=== PATIENT | female | born 1980 | race Caucasian/White ===

== ENCOUNTER → 2017-08-09 | Outpatient (CLI) | payer OTHER ==
--- NOTE | 2017-08-09 15:36 | XR ---
Bilateral knees HISTORY: Bilateral knee pain 2 views of each knee submitted. No comparisons There is sclerosis and some depression of the lateral tibial plateau on the right which may be due to old tibial plateau fracture. Alignment and bone mineralization are otherwise maintained. Similar def ormity questioned along the proximal tibia on the left laterally, some remodeling present in the late ral compartment, correlate for history of trauma. No evident joint effusion. IMPRESSION: Abnormalities noted in the lateral compartments of the knees bilaterally as described.
== END | disposition home or self-care (01) ==
LOC: RADXRMAIN 15:10
PROVIDERS: ATTEND Family Medicine
DX: M25.861 Other specified joint disorders, right knee (principal); M25.862 Other specified joint disorders, left knee; M25.561 Pain in right knee; M25.562 Pain in left knee

== ENCOUNTER 2019-09-18 19:13 | Inpatient (IN) | payer OTHER ==
[2019-09-18] MEDS ORDERED: SODIUM CHLORIDE 0.9% 1,000 ML IV STA (19:20)
[2019-09-18] MEDS ORDERED: SODIUM CHLORIDE 0.9% 1,000 ML IV ONE ×2 (19:22→20:27)
[2019-09-18] MEDS ORDERED: SODIUM CHLORIDE 0.9% 500 ML 500 ML IV ONE (19:22)
--- NOTE | 2019-09-18 19:28 | ED ---
General Adult HPI - General Stated complaint: mental health Time Seen by Provider: 09/18/19 19:15 Source: patient, RN notes reviewed, old records reviewed - History of Present Illness Initial comments: This is a 38-year-old female who presents to the emergency department with the complaint that she is suicidal. Patient was found in a [place] parking lot and EMS was called. Patient states she took 5 [place] and 3-4 Xanax as well as about 20 Effexor. Patient states she did this in attempt to kill herself. Patient is states her life is a mess and that is why she wanted to kill herself and that her daughter would be better off without her. Patient states she did not drink any alcohol today. Patient denies any complaints currently except for a chronic neck pain but no new symptoms of neck pain. Patient denies any numbness weakness per patient denies any headache. Patient denies abdominal pain chest pain difficulty breathing shortness of breath. Patient denies any nausea or vomiting currently. - Related Data Allergies Allergy/AdvReac Type Severity Reaction Status Date / Time No Known Allergies Allergy Verified 09/18/19 20:26 Review of Systems ROS Statement: Those systems with pertinent positive or pertinent negative responses have been documented in the HPI. ROS Other: All systems not noted in ROS Statement are negative. Past Medical History History of Any Multi-Drug Resistant Organisms: ESBL Date of last positivie culture/infection: 04/27/18 MDRO Source:: ESBL URINE General Exam - General Exam Comments Initial Comments: GENERAL: Patient is well-developed and well-nourished. Patient is nontoxic and well- hydrated and is in no acute distress. ENT: Neck is soft and supple. No significant lymphadenopathy is noted. Oropharynx i s clear. Moist mucous membranes. Neck has full range of motion without eliciting any pain. EYES: The sclera were anicteric and conjunctiva were pink and moist. Extraocular movements were intact and pupils were equal round and reactive to light. Eyelids were unremarkable. PULMONARY: Unlabored respirations. Good breath sounds bilaterally. No audible rales rhonchi or wheezing was noted. CARDIOVASCULAR: There is a regular rate and rhythm without any murmurs gallops or rubs. ABDOMEN: Soft and nontender with normal bowel sounds. SKIN: Skin is clear with no lesions or rashes and otherwise unremarkable. NEUROLOGIC: Patient is alert and oriented x3. Cranial nerves II through XII are grossly intact. Motor and sensory are also intact. Normal speech, volume and content. Symmetrical smile. MUSCULOSKELETAL: Normal extremities with adequate strength and full range of motion. LYMPHATICS: No significant lymphadenopathy is noted PSYCHIATRIC: Patient states she is suicidal. Course Vital Signs 09/18/19 19:19 Temperature 98.3 F Pulse Rate 108 H Respiratory 200 H Rate Blood Pressure 157/109 O2 Sat by Pulse 97 Oximetry Medical Decision Making - Medical Decision Making EKG shows normal sinus rhythm at 90 bpm MI interval is 162 QRS is 90 QT interval 394 QTC is 503. Patient's EKG shows Q waves in leads II, III, and F aVF there is no old EKG to compare to. Patient also has inverted T waves in 1 and aVL. Patient also has Q waves in the precordial leads V1 through V3 Poison control recommended watching the patient ate 12 hours. The patient will be admitted 23 observation and cycle be consult. I spoke with Dr. Lugo he was in agreement. - Lab Data Result diagrams: 09/18/19 19:25 09/18/19 19:25 Lab Results 09/18/19 09/18/19 12 Range/Units 19:25 19:25 19:25 WBC 7.2 (3.8-10.6) k/uL RBC 4.45 (3.80-5.40) m/uL Hgb 14.6 (11.4-16.0) gm/dL Hct 42.3 (34.0-46.0) % MCV 94.9 (80.0-100.0) fL MCH 32.7 (25.0-35.0) pg MCHC 34.5 (31.0-37.0) g/dL RDW 13.5 (11.5-15.5) % Plt Count 285 (150-450) k/uL Neutrophils % 61 % Lymphocytes % 33 % Monocytes % 4 % Eosinophils % 0 % Basophils % 0 % Neutrophils # 4.4 (1.3-7.7) k/uL Lymphocytes # 2.4 (1.0-4.8) k/uL Monocytes # 0.3 (0-1.0) k/uL Eosinophils # 0.0 (0-0.7) k/uL Basophils # 0.0 (0-0.2) k/uL Sodium 134 L (137-145) mmol/L Potassium 3.9 (3.5-5.1) mmol/L Chloride 104 (98-107) mmol/L Carbon Dioxide 18 L (22-30) mmol/L Anion Gap 12 mmol/L BUN 9 (7-17) mg/dL Creatinine 0.83 (0.52-1.04) mg/dL Est GFR (CKD-EPI)AfAm >90 (>60 ml/min/1.73 sqM) Est GFR (CKD-EPI)NonAf 90 (>60 ml/min/1.73 sqM) Glucose 505 H* (74-99) mg/dL POC Glucose (mg/dL) 499 H (75-99) mg/dL POC Glu Customer Account Specialist ID [id number], Henny Calcium 9.8 (8.4-10.2) mg/dL Total Bilirubin 0.6 (0.2-1.3) mg/dL AST 21 (14-36) U/L ALT 19 (9-52) U/L Alkaline Phosphatase 95 (38-126) U/L Troponin I (0.000-0.034) ng/mL Total Protein 6.8 (6.3-8.2) g/dL Albumin 4.0 (3.5-5.0) g/dL Urine HCG, Qual (Not Detectd) Salicylates <1.0 mg/dL Urine Opiates Screen (NotDetected) Ur Oxycodone Screen (NotDetected) Urine Methadone Screen (NotDetected) Ur Propoxyphene Screen (NotDetected) Acetaminophen <10.0 ug/mL Ur Barbiturates Screen (NotDetected) U Tricyclic Antidepress (NotDetected) Ur Phencyclidine Scrn (NotDetected) Ur Amphetamines Screen (NotDetected) U Methamphetamines Scrn (NotDetected) U Benzodiazepines Scrn (NotDetected) Urine Cocaine Screen (NotDetected) U Marijuana (THC) Screen (NotDetected) Serum Alcohol <10 mg/dL Acetone, Qual Negative (Negative) 09/18/19 09/18/19 09/18/19 Range/Units 19:25 19:41 19:41 WBC (3.8-10.6) k/uL RBC (3.80-5.40) m/uL Hgb (11.4-16.0) gm/dL Hct (34.0-46.0) % MCV (80.0-100.0) fL MCH (25.0-35.0) pg MCHC (31.0-37.0) g/dL RDW (11.5-15.5) % Plt Count (150-450) k/uL Neutrophils % % Lymphocytes % % Monocytes % % Eosinophils % % Basophils % % Neutrophils # (1.3-7.7) k/uL Lymphocytes # (1.0-4.8) k/uL Monocytes # (0-1.0) k/uL Eosinophils # (0-0.7) k/uL Basophils # (0-0.2) k/uL Sodium (137-145) mmol/L Potassium (3.5-5.1) mmol/L Chloride (98-107) mmol/L Carbon Dioxide (22-30) mmol/L Anion Gap mmol/L BUN (7-17) mg/dL Creatinine (0.52-1.04) mg/dL Est GFR (CKD-EPI)AfAm (>60 ml/min/1.73 sqM) Est GFR (CKD-EPI)NonAf (>60 ml/min/1.73 sqM) Glucose (74-99) mg/dL POC Glucose (mg/dL) (75-99) mg/dL POC Glu Customer Account Specialist ID Calcium (8.4-10.2) mg/dL Total Bilirubin (0.2-1.3) mg/dL AST (14-36) U/L ALT (9-52) U/L Alkaline Phosphatase (38-126) U/L Troponin I 0.023 (0.000-0.034) ng/mL Total Protein (6.3-8.2) g/dL Albumin (3.5-5.0) g/dL Urine HCG, Qual Not Detected (Not Detectd) Salicylates mg/dL Urine Opiates Screen Detected H (NotDetected) Ur Oxycodone Screen Not Detected (NotDetected) Urine Methadone Screen Not Detected (NotDetected) Ur Propoxyphene Screen Not Detected (NotDetected) Acetaminophen ug/mL Ur Barbiturates Screen Not Detected (NotDetected) U Tricyclic Antidepress Not Detected (NotDetected) Ur Phencyclidine Scrn Not Detected (NotDetected) Ur Amphetamines Screen Detected H (NotDetected) U Methamphetamines Scrn Not Detected (NotDetected) U Benzodiazepines Scrn Detected H (NotDetected) Urine Cocaine Screen Not Detected (NotDetected) U Marijuana (THC) Screen Not Detected (NotDetected) Serum Alcohol mg/dL Acetone, Qual (Negative) Disposition Clinical Impression: Drug overdose, Suicidal ideations, Hyperglycemia Disposition: ADMITTED IP TO THIS HOSP Referrals: Francisco Barfield DO [Primary Care Provider] - 1-2 days Time of Disposition: 20:27
[2019-09-18 19:32] LABS: Glucose,Whole Blood 499 mg/dL (75-99)
[2019-09-18 19:56] LABS: Basophils % (A) 0 %; Eosinophils % (A) 0 %; HCT 42.3 % (34.0-46.0); HGB 14.6 gm/dL (11.4-16.0); Lymphocytes # (A) 2.4 k/uL (1.0-4.8); Lymphocytes % (A) 33 %; MCH 32.7 pg (25.0-35.0); MCHC 34.5 g/dL (31.0-37.0); MCV 94.9 fL (80.0-100.0); Mean Platelet Volume 6.3; Monocytes # (A) 0.3 k/uL (0-1.0); Monocytes % (A) 4 %; Neutrophils # (A) 4.4 k/uL (1.3-7.7); Neutrophils % (A) 61 %; Platelet Count 285 k/uL (150-450); RBC 4.45 m/uL (3.80-5.40); RDW 13.5 % (11.5-15.5); WBC 7.2 k/uL (3.8-10.6)
[2019-09-18 20:00] LABS: ALT 19 U/L (9-52); AST 21 U/L (14-36); Acetaminophen <10.0 ug/mL; African American GFR (CKD) >90 (>60 ml/min/1.73 sqM); Alcohol <10 mg/dL; Alkaline Phosphatase 95 U/L (38-126); Anion Gap 12 mmol/L; Blood Urea Nitrogen 9 mg/dL (7-17); Calcium 9.8 mg/dL (8.4-10.2); Carbon Dioxide 18 mmol/L (22-30); Chloride 104 mmol/L (98-107); Non-African American GFR(CKD) 90 (>60 ml/min/1.73 sqM); Potassium 3.9 mmol/L (3.5-5.1); Salicylate <1.0 mg/dL; Sodium 134 mmol/L (137-145); Total Bilirubin 0.6 mg/dL (0.2-1.3); Total Protein 6.8 g/dL (6.3-8.2)
[2019-09-18 20:11] LABS: Amphetamine Screen,Urine Detected (NotDetected); Benzodiazepines Screen,Urine Detected (NotDetected); Cocaine Screen,Urine Not Detected (NotDetected); Opiate Screen,Urine Detected (NotDetected); Phencyclidine Screen,Urine Not Detected (NotDetected); Urn Cannabinoid Scrn Not Detected (NotDetected)
[2019-09-18 20:12] LABS: Barbiturate Screen,Urine Not Detected (NotDetected); Methadone Screen, Urine Not Detected (NotDetected); Oxycodone Screen, Urine Not Detected (NotDetected); Tricyclic Antidepressant,Urine Not Detected (NotDetected)
[2019-09-18 20:20] LABS: Glucose 505 mg/dL (74-99)
[2019-09-18] MEDS ORDERED: INSULIN ASPART (NovoLOG) 100 UNIT/ML VIAL SQ ONE (20:25)
[2019-09-18] MEDS: INSULIN ASPART (NovoLOG) 100 UNIT/ML VIAL SQ SCH ×2 (20:43→22:05)
[2019-09-18 21:23] LABS: Glucose,Whole Blood 369 mg/dL (75-99)
[2019-09-18] MEDS: NICOTINE 21MG/24HR PATCH TRANSDERM SCH (22:06)
[2019-09-19 06:10] LABS: Glucose,Whole Blood 209 mg/dL (75-99)
[2019-09-19] MEDS: PANTOPRAZOLE 40 MG TABLET PO SCH (06:50)
[2019-09-19] MEDS: LEVOTHYROXINE 50 MCG TAB PO SCH (06:50)
[2019-09-19] MEDS: INSULIN ASPART (NovoLOG) 100 UNIT/ML VIAL SQ SCH ×4 (06:50→21:30)
[2019-09-19] MEDS: NICOTINE 21MG/24HR PATCH TRANSDERM SCH (08:18)
[2019-09-19 12:26] LABS: Glucose,Whole Blood 299 mg/dL (75-99)
[2019-09-19] MEDS: metFORMIN 500 MG TAB PO SCH ×2 (12:42→17:34)
--- NOTE | 2019-09-19 13:08 | P.HPIM ---
History of Present Illness H&P Date: 09/19/19 Chief Complaint: Suicidal ideation This is a 38-year-old female patient of Dr. Barfield with past medical history of recurrent depression, diabetes mellitus type 2 off medication, hypothyroidism, tobacco use and dependence, regular marijuana use. Patient states that she has had depression for a long period of time and follows with a psychiatrist first name is Kiah in [place]. Patient states that she has been depressed and not getting out of bed. She and her got into a fight as he stated that he wanted to have a divorce. She states that she does not want to live without him. She states she was feeling suicidal and took 5 Xanax, 20 Effexor, for [place]. Patient states that she lost her insurance in July or August and has not been taking her metformin. She did see Dr. Barfield approximately one month ago. She was seen at Dr. Morales's office in [place] yesterday and received a Depo-Provera and plan. Patient has a sitter at the bedside. Patient was brought into [facility] emergency center for evaluation. Initial blood pressure was high at 157/109, she was afebrile, pulse ox 97%. EKG was a sinus rhythm Q waves in leads 2, 3 aVF, V1 through V3. CBC was unremarkable, blood sugar was 505, CO2 18, creatinine 0.83, liver function tests are normal. Acetaminophen level less than 10, serum alcohol less than 10, acetone negative, troponin 0.0-3, hCG nondetected. Urine drug screen was positive for opiates and amphetamines, benzodiazepines. The patient was started on IV fluids, 1 dose of NovoLog insulin and scale started, consult with psychiatry and social work. Patient has a sitter at the bedside. Patient is subtotally been started on Tradjenta, metformin. Blood sugars are now running in the 200s. . Review of Systems Constitutional: Denies chills, Denies fatigue, Denies fever, Denies malaise, Denies weakness Eyes: denies blurred vision, denies pain Ears, nose, mouth and throat: Denies headache, Denies nasal congestion, Denies nasal discharge, Denies sore throat Cardiovascular: Denies chest pain, Denies decreased exercise tolerance, Denies dyspnea on exertion, Denies edema, Denies leg edema, Denies lightheadedness, Denies shortness of breath, Denies syncope Respiratory: Denies cough, Denies cough with sputum, Denies dyspnea, Denies excessive sputum, Denies hemoptysis, Denies home oxygen, Denies respiratory infections, Denies wheezing Gastrointestinal: Denies abdominal pain, Denies diarrhea, Denies loss of appetite, Denies nausea, Denies vomiting Genitourinary: Denies dysuria, Denies hematuria Musculoskeletal: Denies myalgias Integumentary: Reports wounds (Patient picks at scabs.), Denies pruritus, Denies rash Neurological: Denies change in mentation, Denies change in speech, Denies numbness, Denies seizures, Denies weakness Psychiatric: Reports change in sleep habits, Reports depression, Reports hypersomnia, Reports suicidal ideation, Denies hallucinations Endocrine: Denies fatigue, Denies weight change Past Medical History Past Medical History: Diabetes Mellitus, GERD/Reflux, Thyroid Disorder History of Any Multi-Drug Resistant Organisms: None Reported, ESBL Date of last positivie culture/infection: 04/27/18 MDRO Source:: ESBL URINE Additional Past Surgical History / Comment(s): Cervical spine surgery, scoliosis repair, kidney stone surgeries, Right knee arthroscopy (cartilage removed), Csection Past Anesthesia/Blood Transfusion Reactions: No Reported Reaction Past Psychological History: Anxiety, Bipolar, Depression Smoking Status: Current every day smoker Additional Past Alcohol Use History / Comment(s): Patient is a smoker of one and half packs per day for 20 years. She smokes marijuana at least 3 times a week for the past 2 years. She denies any alcohol abuse. She currently lives at home with her . - Past Family History Father Additional Family Medical History / Comment(s): Father in his 20s from suicide. Mother Additional Family Medical History / Comment(s): Mother is alive in her 50s with no major medical problems. Brother(s) Additional Family Medical History / Comment(s): Patient has 2 brothers with no major medical problems. Patient does not have any sisters. Patient has one daughter with no major medical problems. Medications and Allergies Home Medications Medication Instructions Recorded Confirmed Type Dextroamphetamine/Amphetamine 30 mg PO BID 09/18/19 09/18/19 History [Adderall] HYDROcodone/APAP 10-325MG [Allgood 1 tab PO BID PRN 09/18/19 09/18/19 History 10-325] Levothyroxine Sodium 150 mcg PO DAILY 09/18/19 09/18/19 History Omeprazole 20 mg PO BID 09/18/19 09/18/19 History Venlafaxine HCl [Effexor XR] 150 mg PO BID 09/18/19 09/18/19 History medroxyPROGESTERone [Depo-Provera] 150 mg IM Q84D 09/18/19 09/18/19 History Allergies Allergy/AdvReac Type Severity Reaction Status Date / Time No Known Allergies Allergy Verified 09/18/19 21:24 Physical Exam Vitals: Vital Signs Temp Pulse Pulse Resp BP BP Pulse Ox 09/19/19 12:00 98.2 F 82 16 123/79 95 09/19/19 08:19 98.3 F 86 16 111/74 94 L 09/19/19 04:54 97.4 F L 89 16 132/80 92 L 09/18/19 23:27 97.6 F 92 20 118/71 93 L 09/18/19 21:20 98.1 F 82 18 140/98 98 09/18/19 20:30 79 18 134/87 97 09/18/19 20:15 87 18 135/84 98 09/18/19 20:00 90 18 137/91 95 09/18/19 19:45 93 18 162/103 95 09/18/19 19:19 98.3 F 108 H 20 157/109 97 Intake and Output 09/18/19 09/19/19 09/19/19 22:59 06:59 14:59 Intake Total 900 240 Balance 900 240 Intake: Intake, IV Titration 900 Amount Sodium Chloride 0.9% 1, 900 000 ml @ 100 mls/hr IV . Q10H ONE Rx#:[id number] Oral 240 Other: # Voids 1 0 Weight 111.13 kg 107.5 kg - Constitutional General appearance: cooperative, disheveled, no acute distress, obese - EENT Eyes: EOMI, PERRLA, normal appearance ENT: hearing grossly normal - Neck Neck: no lymphadenopathy, normal ROM, no rigidity - Respiratory Respiratory: bilateral: CTA, negative: diminished, rales, rhonchi, wheezing - Cardiovascular Rhythm: regular Heart sounds: normal: S1, S2 Abnormal Heart Sounds: no systolic murmur, no diastolic murmur - Gastrointestinal General gastrointestinal: no distended, normal bowel sounds, no organomegaly, soft, no tenderness - Integumentary Integumentary: normal - Neurologic Neurologic: CNII-XII intact - Musculoskeletal Musculoskeletal: no generalized weakness, strength equal bilaterally - Psychiatric Psychiatric: A&O x's 3, appropriate affect, intact judgment & insight Results CBC & Chem 7: 09/18/19 19:25 09/18/19 19:25 Labs: Abnormal Lab Results - Last 24 Hours (Table) 09/18/19 09/18/19 09/18/19 Range/Units 19:25 19:25 19:41 Sodium 134 L (137-145) mmol/L Carbon Dioxide 18 L (22-30) mmol/L Glucose 505 H* (74-99) mg/dL POC Glucose (mg/dL) 499 H (75-99) mg/dL Urine Opiates Screen Detected H (NotDetected) Ur Amphetamines Screen Detected H (NotDetected) U Benzodiazepines Scrn Detected H (NotDetected) 09/18/19 09/19/19 09/19/19 Range/Units 21:20 06:08 12:02 Sodium (137-145) mmol/L Carbon Dioxide (22-30) mmol/L Glucose (74-99) mg/dL POC Glucose (mg/dL) 369 H 209 H 299 H (75-99) mg/dL Urine Opiates Screen (NotDetected) Ur Amphetamines Screen (NotDetected) U Benzodiazepines Scrn (NotDetected) Thrombosis Risk Factor Assmnt - DVT/VTE Prophylaxis DVT/VTE Prophylaxis: Pharmacologic Prophylaxis ordered - Choose All That Apply Any of the Below Risk Factors Present?: Yes Each Factor Represents 1 point: Oral contraceptives or hormone replacement therapy Other Risk Factors: No Other congenital or acquired thrombophilia - If yes, enter type in comment: No Thrombosis Risk Factor Assessment Total Risk Factor Score: 1 Thrombosis Risk Factor Assessment Level: Low Risk Assessment and Plan Plan: 1. Suicide attempt with recurrent depression. Patient has sitter at the [facility], psychiatrist consult, continue IV fluids. 2. Diabetes mellitus type 2 uncontrolled secondary to noncompliance with medication. Patient will be resumed on metformin 500 mg twice daily and Tr adjenta added. Continue NovoLog scale before meals and at bedtime. parent educator. Obtain hemoglobin A1c. 3. Hypothyroidism. Continue levothyroxine 150 g daily, check TSH and free T4. 4. Tobacco use and dependence. Nicotine patch. 5. Marijuana use. 6. Gastroesophageal reflux disease and GI prophylaxis. Protonix. 7. DVT prophylaxis. Heparin subcu. Patient will be admitted to the hospital for a minimum of 2 night stay. Discharge plan: Patient is medically clear for transfer to the mental health unit. Impression and plan of care have been directed as dictated by the signing physician. Pamella Aparicio nurse practitioner acting as scribe for signing physician.
[2019-09-19 14:28] LABS: T4, Free (Free Thyroxine) 0.88 ng/dL (0.78-2.19)
--- NOTE | 2019-09-19 15:37 | P.CN ---
Psychiatric Consult - . Consult date: 09/19/19 Consult:: IDENTIFYING DATA: The patient is a 38-year-old female admitted to medicine service following an attempted suicide attempt by overdose of prescription medications including [place], Xanax and Effexor. HISTORY OF PRESENT ILLNESS: I reviewed the medical record and interviewed the patient. She stated that she's been struggling with depression for "most of my life." She alleged that her depression is so severe that she is unable to care for herself, her home her family. She alleged that she is fatigued "all day" and has no energy to herself, her home or family. Her behavior has resulted in marital discord. In April her told her that he could not "take this anymore" and told her that he "wants a divorce." She begged him to give her "6 more months". The day prior to admission he told her that things changed and he wants out of the marriage. She stated that she "could not live" without him and took the medication to end her life. She has been treated for depression since she was 17 years old. She is currently engaged in individual therapy and meets with the psychiatrist at the clinic (she did not remember the name of clinic). She described classic symptoms of depression including persistent feelings of hopelessness and worthlessness, lack of energy, persistent guilt, anhedonia, recurrent thoughts of and suicide and hypersomnia. She also complained of persistent and disabling anxiety that fluctuates in intensity. She had multiple excoriations on the back of her left hand and excoriations on her abdomen from chronic skin picking. She denied other obsessions or compulsions. She denied experiencing such psychotic symptoms as hallucinations, paranoia or delusional thinking. She denied use of alcohol but smokes marijuana. PAST PSYCHIATRIC HISTORY: She denied prior psychiatric hospitalizations.. PAST MEDICAL HISTORY: Diabetes mellitus, GERD, thyroid disorder. ALLERGIES: NO KNOWN DRUG ALLERGIES. SUBSTANCE USE HISTORY: She is not been substance abuse treatment program. She denied a family or friends have expressed concern about her marijuana use.. FAMILY PSYCHIATRIC/SUBSTANCE USE HISTORY: Unknown. SOCIAL HISTORY: Her father apparently by suicide when she was 1 years old. She has 2 brothers. She graduated from high school. She is currently unemployed. She lives with her and heir daughter. MENTAL STATUS EXAM: She presented as a modestly obese 38-year-old female who looked older than her stated age. She made eye contact and appeared to attend to the interview. Other than excoriations on the back of her left hand she had no prominent physical abnormalities. She had a distressed facial expression. She is alert and oriented to person, place and time. She showed psychomotor retardation but no abnormal movements. Her speech was spontaneous with decreased rate, rhythm and volume. Affect was depressed, anxious and not reactive. She described continued suicidal ideation and wishes. She denied homicidal ideation. She expressed feelings of hopelessness, helplessness and worthlessness. She ruminated about circumstances that led to this hospitalization particularly the ongoing conflict with her . She did not express ideas reference, paranoid ideation, magical thinking or delusions. Her thinking was concrete. Associations were coherent, logical and goal directed. She denied hallucinations and did not appear to be responding to internal stimuli.. 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 [facility] a suicide attempt by overdose of prescription medications after told her that he wants divorce. She described classic symptoms of depression and complicated by psychosis. She should best be treated on an inpatient psychiatric unit with a combination of psychopharmacology and multimodal therapy. DIAGNOSIS: Persistent depressive disorder, excoriations disorder, rule out major depressive disorder rule out cannabis use disorder, marital problems PLAN:. Psychiatric unit once medically stable, continue one-to-one while she was on the medical unit, distress consult.. 09/19/19 15:19
[2019-09-19 17:12] LABS: Glucose,Whole Blood 279 mg/dL (75-99)
[2019-09-19 21:23] LABS: Glucose,Whole Blood 277 mg/dL (75-99)
[2019-09-19] MEDS: HEPARIN SODIUM,PORCINE 5,000 UNIT/ML 1 ML VIAL SQ SCH (21:30)
[2019-09-20 05:11] VITALS: PULSE 83
[2019-09-20 06:28] LABS: Glucose,Whole Blood 198 mg/dL (75-99)
[2019-09-20] MEDS: LEVOTHYROXINE 50 MCG TAB PO SCH (07:13)
[2019-09-20] MEDS: PANTOPRAZOLE 40 MG TABLET PO SCH (07:13)
[2019-09-20] MEDS: INSULIN ASPART (NovoLOG) 100 UNIT/ML VIAL SQ SCH (07:13)
[2019-09-20] MEDS: metFORMIN 500 MG TAB PO SCH (07:13)
[2019-09-20 08:12] VITALS: BP 123/79; RESP 20; TEMP 98.1
[2019-09-20] MEDS ORDERED: LINAGLIPTIN 5 MG TABLET PO SCH (09:00)
[2019-09-20] MEDS: HEPARIN SODIUM,PORCINE 5,000 UNIT/ML 1 ML VIAL SQ SCH (09:10)
[2019-09-20] MEDS: NICOTINE 21MG/24HR PATCH TRANSDERM SCH (09:10)
[2019-09-20 12:05] LABS: Glucose,Whole Blood 228 mg/dL (75-99)
[2019-09-20] MEDS ORDERED: INSULIN ASPART (NovoLOG) 100 UNIT/ML VIAL SQ SCH (12:30)
--- NOTE | 2019-09-20 13:27 | P.DS ---
Providers Date of admission: 09/18/19 20:27 Attending physician: Antonio Lugo Consults: 09/18/19 20:28 Consult Physician Stat Consulting Provider: Antonio Ibarra Reason/Comments: Suicidal ideations and attempt Do you want consulting provider notified?: Already Contacted Primary care physician: Francisco Barfield [facility] Course: Chief Complaint: Suicidal ideation This is a 38-year-old female patient of Dr. Barfield with past medical history of recurrent depression, diabetes mellitus type 2 off medication, hypothyroidism, tobacco use and dependence, regular marijuana use. Patient states that she has had depression for a long period of time and follows with a psychiatrist first name is Kiah in [place]. Patient states that she has been depressed and not getting out of bed. She and her got into a fight as he stated that he wanted to have a divorce. She states that she does not want to live without him. She states she was feeling suicidal and took 5 Xanax, 20 Effexor, for Bern. Patient states that she lost her insurance in July or August and has not been taking her metformin. She did see Dr. Barfield approximately one month ago. She was seen at Dr. Morales's office in [place] yesterday and received a Depo-Provera and plan. Patient has a sitter at the bedside. Patient was brought into [facility] emergency center for evaluation. Initial blood pressure was high at 157/109, she was afebrile, pulse ox 97%. EKG was a sinus rhythm Q waves in leads 2, 3 aVF, V1 through V3. CBC was unremarkable, blood sugar was 505, CO2 18, creatinine 0.83, liver function tests are normal. Acetaminophen level less than 10, serum alcohol less than 10, acetone negative, troponin 0.0-3, hCG nondetected. Urine drug screen was positive for opiates and amphetamines, benzodiazepines. The patient was started on IV fluids, 1 dose of NovoLog insulin and scale started, consult with psychiatry and social work. Patient has a sitter at the bedside. Patient is subtotally been started on Tradjenta, metformin. Blood sugars are now running in the 200s. . 09/20 patient is doing very well advance physical therapy [medication was seen by psych patient be transported to the psych unit today. Review of Systems Constitutional: Denies chills, Denies fatigue, Denies fever, Denies malaise, Denies weakness Eyes: denies blurred vision, denies pain Ears, nose, mouth and throat: Denies headache, Denies nasal congestion, Denies nasal discharge, Denies sore throat Cardiovascular: Denies chest pain, Denies decreased exercise tolerance, Denies dyspnea on exertion, Denies edema, Denies leg edema, Denies lightheadedness, Denies shortness of breath, Denies syncope Respiratory: Denies cough, Denies cough with sputum, Denies dyspnea, Denies excessive sputum, Denies hemoptysis, Denies home oxygen, Denies respiratory infections, Denies wheezing Gastrointestinal: Denies abdominal pain, Denies diarrhea, Denies loss of appetite, Denies nausea, Denies vomiting Genitourinary: Denies dysuria, Denies hematuria Musculoskeletal: Denies myalgias Integumentary: Reports wounds (Patient picks at scabs.), Denies pruritus, Denies rash Neurological: Denies change in mentation, Denies change in speech, Denies numbness, Denies seizures, Denies weakness Psychiatric: Reports change in sleep habits, Reports depression, Reports hypersomnia, Reports suicidal ideation, Denies hallucinations Endocrine: Denies fatigue, Denies weight change Physical examinations: General Appearance: Alert, cooperative, no distress, appears stated age. Neck HEENT: Supple, no lymphadenopathy, no thyroid enlargement, no carotid bruits. Lungs: Clear to auscultation without crackles or wheezes no rhonchi, no deformity. Chest Wall: Chest wall normal expansion with deep inspiration no tenderness and no deformity was found on exam, no costochondral pain or discomfort. Heart: Regular rate and rhythm, S1, S2 normal, no murmur, rub or gallop. Back: Symmetric, no curvature, ROM normal, no CVA tenderness. Abdomen: Soft, non-tender, bowel sounds active all four quadrants, no masses, no organomegaly. Extremities: Extremities normal, atraumatic, no cyanosis or edema. Pulses: 2+ and symmetric. Skin: Skin color, texture, tugor normal, no rashes or lesions. Neurologic: Alert oriented x3 cranial nerves II through XII intact, no motor deficit, no abnormal balance or gait. Assessment and Plan Plan: 1. Suicide attempt with recurrent depression. Patient has sitter at the bedside, psychiatrist consult, continue IV fluids. 2. Diabetes mellitus type 2 uncontrolled secondary to noncompliance with medication. Patient will be resumed on metformin 500 mg twice daily and Tradjenta added. Continue NovoLog scale before meals and at bedtime. 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 Obtain hemoglobin A1c. 3. Hypothyroidism. Continue levothyroxine 150 g daily, check TSH and free T4. 4. Tobacco use and dependence. Nicotine patch. 5. Marijuana use. 6. Gastroesophageal reflux disease and GI prophylaxis. Protonix. 7. DVT prophylaxis. Heparin subcu. Patient was approved to be transferred to psych unit by today 09/20/2019. Readjust diabetic management and increase metformin to 1000 g twice a day NovoLog 5 units before meals eels plus sliding scales. Plan - Discharge Summary New Discharge Prescriptions: New Nicotine 21Mg/24Hr Patch [Habitrol] 1 patch TRANSDERM DAILY patch INSULIN ASPART (NovoLOG) [NovoLOG (formulary)] 0 unit SQ ACHS vial Linagliptin [Tradjenta] 5 mg PO DAILY tablet metFORMIN HCL [Glucophage] 1,000 mg PO BID-W/MEALS tab INSULIN ASPART (NovoLOG) [NovoLOG (formulary)] 5 unit SQ AC-TID vial Continue Venlafaxine HCl [Effexor XR] 150 mg PO BID medroxyPROGESTERone [Depo-Provera] 150 mg IM Q84D Levothyroxine Sodium 150 mcg PO DAILY HYDROcodone/APAP 10-325MG [Bern 10-325] 1 tab PO BID PRN PRN Reason: Pain Dextroamphetamine/Amphetamine [Adderall] 30 mg PO BID Omeprazole 20 mg PO BID Discharge Medication List Dextroamphetamine/Amphetamine [Adderall] 30 mg PO BID 09/18/19 [History] HYDROcodone/APAP 10-325MG [Bern 10-325] 1 tab PO BID PRN 09/18/19 [History] Levothyroxine Sodium 150 mcg PO DAILY 09/18/19 [History] Omeprazole 20 mg PO BID 09/18/19 [History] Venlafaxine HCl [Effexor XR] 150 mg PO BID 09/18/19 [History] medroxyPROGESTERone [Depo-Provera] 150 mg IM Q84D 09/18/19 [History] INSULIN ASPART (NovoLOG) [NovoLOG (formulary)] 0 unit SQ ACHS vial 09/20/19 [Rx] INSULIN ASPART (NovoLOG) [NovoLOG (formulary)] 5 unit SQ AC-TID vial 09/20/19 [Rx] Linagliptin [Tradjenta] 5 mg PO DAILY tablet 09/20/19 [Rx] Nicotine 21Mg/24Hr Patch [Habitrol] 1 patch TRANSDERM DAILY patch 09/20/19 [Rx] metFORMIN HCL [Glucophage] 1,000 mg PO BID-W/MEALS tab 09/20/19 [Rx] Follow up Appointment(s)/Referral(s): Francisco Barfield DO [Primary Care Provider] - 1-2 days Discharge Disposition: TRANSFER TO PSYCH HOSP/UNIT
[2019-09-20] MEDS ORDERED: metFORMIN 500 MG TAB PO SCH (17:30)
== END 2019-09-20 12:00 | DRG 918 ==
LOC: EC 19:13 → 3SCARD 20:27
PROVIDERS: ADMIT Internal Medicine Geriatric Medicine; ATTEND Internal Medicine Geriatric Medicine
DX: T43.212A Poisoning by selective serotonin and norepinephrine reuptake inhibitors, intentional self-harm, initial encounter (principal); F33.9 Major depressive disorder, recurrent, unspecified; T40.2X2A Poisoning by other opioids, intentional self-harm, initial encounter; E03.9 Hypothyroidism, unspecified; E11.65 Type 2 diabetes mellitus with hyperglycemia; T38.3X6A Underdosing of insulin and oral hypoglycemic [antidiabetic] drugs, initial encounter; Z91.120 Patient's intentional underdosing of medication regimen due to financial hardship; F17.200 Nicotine dependence, unspecified, uncomplicated; F41.9 Anxiety disorder, unspecified; G89.29 Other chronic pain; M54.2 Cervicalgia; M41.9 Scoliosis, unspecified; Z79.890 Hormone replacement therapy; Z87.442 Personal history of urinary calculi; G47.10 Hypersomnia, unspecified; Z56.0 Unemployment, unspecified; Z63.5 Disruption of family by separation and divorce; Z81.8 Family history of other mental and behavioral disorders; E66.9 Obesity, unspecified; Z68.36 Body mass index [BMI] 36.0-36.9, adult
CPT/HCPCS: 36415; 80053; 80306; 80320; 80329; 81025; 82009; 82075; 83036; 83520; 84439; 84443; 84484; 85025; 93005; 96360; 99285

== ENCOUNTER 2019-09-20 10:27 | Inpatient (IN) | payer OTHER ==
[2019-09-20 12:39] LABS: Glucose,Whole Blood 222 mg/dL (75-99)
[2019-09-20] MEDS ORDERED: MAG HYDROX/AL HYDROX/SIMETH 30 ML CUP PO PRN (12:40)
[2019-09-20] MEDS ORDERED: MAGNESIUM HYDROXIDE 2,400 MG/10 ML CUP PO PRN (12:40)
[2019-09-20] MEDS: INSULIN ASPART (NovoLOG) 100 UNIT/ML VIAL SQ SCH ×5 (13:17→21:16)
[2019-09-20 15:13] VITALS: BMI 36.1
--- NOTE | 2019-09-20 15:56 | P.HP ---
Psychiatric H&P - . H&P Date: 09/20/19 History & Physical: DENTIFYING DATA: The patient is a 38-year-old female transferred from medicine service following an attempted suicide attempt by overdose of prescription medications including Narco, Xanax and Effexor. HISTORY OF PRESENT ILLNESS: I reviewed the medical record and interviewed the patient. She complained that she's been struggling with depression for "most of my life." Her depression worsened about 3 to 3 1/2 years ago after she stopped working. 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 She has since been at home. She alleged that her depression had become so severe that she is unable to care for herself, her home her family. She is fatigued "all day" and has no energy to care for herself, her home or family. She "lays in bed" all day watching television. Her behavior has resulted in marital discord. In April her told her that he could not "take this anymore" and told her that he "wants a divorce." She begged him to give her "6 more months". The day prior to admission he told her that things have not changed and he wants out of the marriage. She stated that she "could not live" without him and took the medication impulsively. She denied the action was planned or premeditated. She meets with a therapist at [facility] in [place], [place]. Her primary care provider has prescribed psychotropic medication that include E ffexor XR, Xanax and Adderall. She stated that the physician prescribed Xanax for treatment of "severe" anxiety and prescribed Adderall because of persistent fatigue. She described classic symptoms of depression including persistent feelings of hopelessness and worthlessness, lack of energy, persistent guilt, anhedonia, recurrent thoughts of and suicide and hypersomnia. She also complained of persistent and disabling anxiety that fluctuates in intensity. She had multiple excoriations on the back of her left hand, forelegs and her abdomen from chronic skin picking. She denied other obsessions or compulsions. She denied experiencing such psychotic symptoms as hallucinations, paranoia or delusional thinking. She denied use of alcohol but smokes marijuana. PAST PSYCHIATRIC HISTORY: She denied prior psychiatric hospitalizations. She first received treatment for depression when she was 17 years old. She alleged that she does not remember why she entered treatment. She denied past suicide attempts or gestures. She has been prescribed several antidepressant such as Prozac, Paxil, Celexa, Wellbutrin but she thinks she's been prescribed several other medications. PAST MEDICAL HISTORY: Diabetes mellitus, GERD, thyroid disorder. ALLERGIES: NO KNOWN DRUG ALLERGIES. SUBSTANCE USE HISTORY: She is not been substance abuse treatment program. She denied a family or friends have expressed concern about her marijuana use.. FAMILY PSYCHIATRIC/SUBSTANCE USE HISTORY: Her father by suicide when she was 1 years old from carbon monoxide suffocation. Her mother has a history of depression SOCIAL HISTORY: She is born and raised in [place]. She has 2 brothers. She graduated from high school. She is currently unemployed. She lives with her and heir daughter. MENTAL STATUS EXAM: She presented as a modestly obese 38-year-old female who looked older than her stated age. She made eye contact and appeared to attend to the interview. Other than excoriations on the back of her left hand she had no prominent physical abnormalities. She had a distressed and angry facial expression. She cried when she talked about her marriage and again made statements that she could not continue if her her. She is alert and oriented to person, place and time. She showed psychomotor retardation but no abnormal movements. Her speech was spontaneous with decreased rate, rhythm and volume. Affect was depressed, anxious and not reactive. She described continued suicidal ideation and wishes. She denied homicidal ideation. She expressed feelings of hopelessness, helplessness and worthlessness. She ruminated about circumstances that led to this hospitalization particularly the ongoing conflict with her . She did not express ideas reference, paranoid ideation, magical thinking or delusions. Her thinking was concrete. Associations were coherent, logical and goal directed. She denied hallucinations and did not appear to be responding to internal stimuli.. 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 She presented to [facility] following a suicide attempt by overdose of prescription medications after told her that he wants divorce. She described classic symptoms of depression and complicated by psychosis. She should best be treated on an inpatient psychiatric unit with a combination of psychopharmacology and multimodal therapy. DIAGNOSIS: Major depressive disorder severe without psychotic features, excoriations disorder, marital problems PLAN: Admit to the psychiatric unit, safety precautions, consult medicine for initial physical exam and medical history, family welfare social work professor completed initial physical history and coordinate discharge and aftercare, obtain a more comprehensive list of past treatments, discontinue Effexor XR (she appeared to have had adequate dose andduration of treatment), most likely she would benefit from a combined treatment with antidepressant and a second medication either lithium or second generation antipsychotic, consider referral for ECT, encourage participation in therapeutic groups and activities. Evaluate clinical status response to treatment daily basis. Allergies Allergy/AdvReac Type Severity Reaction Status Date / Time No Known Allergies Allergy Verified 09/20/19 12:37 Vital Signs Temp 97.8 F 09/20/19 13:25 Pulse 87 09/20/19 13:25 Resp 18 09/20/19 13:25 BP 138/88 09/20/19 13:25 Pulse Ox 99 09/20/19 13:25 Intake & Output 09/19/19 09/20/19 09/20/19 18:59 06:59 18:59 Weight 107.6 kg Laboratory Last Values POC Glucose (mg/dL) 222 mg/dL (75-99) H 09/20/19 12:38 POC Glu Drywall Worker ID Jessica Chandler 09/20/19 12:38 09/20/19 15:26 09/20/19 15:37 09/20/19 15:52
[2019-09-20] MEDS: metFORMIN 500 MG TAB PO SCH (17:25)
[2019-09-20 17:30] LABS: Glucose,Whole Blood 247 mg/dL (75-99)
[2019-09-20] MEDS ORDERED: INSULIN ASPART (NovoLOG) 100 UNIT/ML VIAL SQ SCH ×2 (17:30)
[2019-09-20 20:16] LABS: Glucose,Whole Blood 212 mg/dL (75-99)
[2019-09-20] MEDS: INSULIN DETEMIR (LEVEMIR) 100 UNIT/ML SYR SQ SCH (21:17)
--- NOTE | 2019-09-21 00:38 | P.MDCNMH ---
History of Present Illness H&P Date: 09/20/19 Chief Complaint: Suicidal ideation 39-year-old female with history of depression diabetes mellitus and hypothyroid Patient comes in due to suicidal ideation she reports that she was thinking of overdosing on medications. She currently denies any suicidal ideation. Patient reports overwhelming depression Otherwise currently denies any physical or medical complaints denies any fevers chills headache nausea vomiting chest pain trouble breathing abdominal pain changes in her bowel or urinary habits. Patient admits to picking on her skin resulting in bruising over her body Review of Systems Pertinent positives as noted in HPI. All other systems were reviewed and are negative Past Medical History Past Medical History: Diabetes Mellitus, GERD/Reflux, Thyroid Disorder History of Any Multi-Drug Resistant Organisms: None Reported, ESBL Date of last positivie culture/infection: 04/27/18 MDRO Source:: ESBL URINE Additional Past Surgical History / Comment(s): Cervical spine surgery, scoliosis repair, kidney stone surgeries, Right knee arthroscopy (cartilage removed), Csection Past Anesthesia/Blood Transfusion Reactions: No Reported Reaction Smoking Status: Current every day smoker - Past Family History Father Additional Family Medical History / Comment(s): Father in his 20s from suicide. Mother Additional Family Medical History / Comment(s): Mother is alive in her 50s with no major medical problems. Brother(s) Additional Family Medical History / Comment(s): Patient has 2 brothers with no major medical problems. Patient does not have any sisters. Patient has one daughter with no major medical problems. Medications and Allergies Home Medications Medication Instructions Recorded Confirmed Type Dextroamphetamine/Amphetamine 30 mg PO BID 09/18/19 09/18/19 History [Adderall] HYDROcodone/APAP 10-325MG [[place] 1 tab PO BID PRN 09/18/19 09/18/19 History 10-325] Levothyroxine Sodium 150 mcg PO DAILY 09/18/19 09/18/19 History Omeprazole 20 mg PO BID 09/18/19 09/18/19 History Venlafaxine HCl [Effexor XR] 150 mg PO BID 09/18/19 09/18/19 History medroxyPROGESTERone [Depo-Provera] 150 mg IM Q84D 09/18/19 09/18/19 History INSULIN ASPART (NovoLOG) [NovoLOG 0 unit SQ ACHS vial 09/20/19 Rx (formulary)] INSULIN ASPART (NovoLOG) [NovoLOG 5 unit SQ AC-TID vial 09/20/19 Rx (formulary)] Linagliptin [Tradjenta] 5 mg PO DAILY tablet 09/20/19 Rx Nicotine 21Mg/24Hr Patch [Habitrol] 1 patch TRANSDERM DAILY patch 09/20/19 Rx metFORMIN HCL [Glucophage] 1,000 mg PO BID-W/MEALS tab 09/20/19 Rx Allergies Allergy/AdvReac Type Severity Reaction Status Date / Time No Known Allergies Allergy Verified 09/20/19 12:37 Physical Exam Vitals: Vital Signs Temp Pulse Resp BP Pulse Ox 09/20/19 13:25 97.8 F 87 18 138/88 99 Intake and Output 09/20/19 09/20/19 09/21/19 14:59 22:59 06:59 Other: Weight 107.6 kg 107.6 kg Constitutional: No acute distress, conversant, pleasant Eyes: Anicteric sclerae, moist conjunctiva, no lid-lag Pupils equal round reactive to light ENMT: NC/AT Oropharynx clear, no erythema, exudates Neck: Supple, FROM, no masses, or JVD No carotid bruits No thyromegaly Lungs: Clear to auscultation Clear to percussion Normal respiratory effort, no accessory muscle use Cardiovascular: Heart regular in rate and rhythm, No murmurs, gallops, or rubs No peripheral edema Abdominal: Soft Nontender, no guarding, rebound or rigidity Abdomen moving with respiration Normoactive bowel sounds No hepatomegaly, No splenomegaly No palpable mass No abdominal wall hernia noted Skin: Dorsum of her left hand with scarring and bruising due to patient picking on her skin no active bleeding or drainage, similar areas over her belly Otherwise Normal temperature, tone, texture, turgor No induration Extremities: No digital cyanosis No clubbing Pedal pulses intact and symmetrical Radial pulses intact and symmetrical No calf tenderness Psychiatric: Alert and oriented to person, place and time Flat affect Poor judgment Neuro Muscles Strength 5/5 in all 4 extremities Sensation to light touch grossly present throughout Cranial nerves II-XII grossly intact No focal sensory deficits Lymphatics: no palpable cervical or supraclavicular , or inguinal lymph nodes Cranial Nerve Examination - Cranial Nerves Cranial Nerve II- Optic: Intact Cranial Nerve III- Oculomotor: Intact Cranial Nerve IV- Trochlear: Intact Cranial Nerve V- Trigeminal: Intact Cranial Nerve - Abducens: Intact Cranial Nerve VII- Facial: Intact Cranial Nerve VIII- Auditory: Intact Cranial Nerve IX- Glossopharyngeal: Intact Cranial Nerve X- Vagus: Intact Cranial Nerve XI- Accessory: Intact Cranial Nerve XII- Hypoglossal: Intact Results Labs: Abnormal Lab Results - Last 24 Hours (Table) 09/20/19 09/20/19 09/20/19 Range/Units 12:38 17:19 20:14 POC Glucose (mg/dL) 222 H 247 H 212 H (75-99) mg/dL Assessment and Plan Assessment: 39-year-old female with history of diabetes and depression and hypothyroid Admitted to suicidal ideation and depression Currently has no medical complaints medicine was consulted for the management Plan: Depression with suicidal ideation Management per psych Chronic conditions Diabetes mellitus, insulin sliding scale Hypothyroid Resume home meds Patient is an ambulatory low risk for DVT Thank you for allowing us to participate in the care of this patient. We will follow peripherally. Do not hesitate to contact us with questions. Someone can be reached from the [facility] hospitalist group at all hours of the day at [phone].
[2019-09-21] MEDS: LEVOTHYROXINE 75 MCG TAB PO SCH (07:59)
[2019-09-21] MEDS: PANTOPRAZOLE 40 MG TABLET PO SCH (07:59)
[2019-09-21] MEDS: LINAGLIPTIN 5 MG TABLET PO SCH (07:59)
[2019-09-21] MEDS: metFORMIN 500 MG TAB PO SCH ×2 (07:59→17:41)
[2019-09-21] MEDS: NICOTINE 21MG/24HR PATCH TRANSDERM SCH (07:59)
[2019-09-21 08:03] LABS: Glucose,Whole Blood 185 mg/dL (75-99)
[2019-09-21] MEDS: INSULIN ASPART (NovoLOG) 100 UNIT/ML VIAL SQ SCH ×7 (08:04→20:36)
[2019-09-21 12:43] LABS: Glucose,Whole Blood 180 mg/dL (75-99)
--- NOTE | 2019-09-21 13:40 | P.PN ---
Progress Note - Text Progress Note Date: 09/21/19 Clinical Problems: Major depressive disorder severe without psychotic features, excoriation disorder, marital problems Interim history: I reviewed the medical record, interviewed the patient and discussed her treatment and treatment plan during team meeting. She complained of continued fatigue, hypersomnia and anhedonia. She has not spoken to her since she been admitted about the marriage for his request for divorce. She slept 6 hours last night and has not attended therapeutic groups or activities. We reviewed her treatment history. She has been prescribed several antidepressants including citalopram, escitalopram, fluoxetine, paroxetine, sertraline, duloxetine, venlafaxine, vilazodone and bupropion. She has not been treated with a tricyclic antidepressant, tetracycline Antidepressant or a monoamine oxidase inhibitor. She could not remember if she had been prescribed second-generation antipsychotic. She denied prior treatment with lithium. We discussed treatment options and I recommended treatment with a tricyclic antidepressant and lithium. Considering her history of excoriation disorder I recommended clomipramine. I provided her with information about both medications. She was ambivalent about ECT. her tsh on admission to medicine unit was 16.3. She is taking 150 g of synthroid daily. Mental status exam: She presented as a casually groomed moderate obese 39-year-old female who was pleasant on approach. She made eye contact and appeared to attend to the interview. She had no overt lesions on the back of her left hand from skin picking. She had a sad facial expression. She was alert and oriented to person place and time. She had psychomotor retardation but no abnormal movements. His gait was slow but steady. Her speech was not spontaneous and had decreased rate, rhythm and volume. Her affect was depressed and not reactive. She denied current suicidal ideation or wishes. She continues to express feelings of hopelessness, helplessness and worthlessness. She did not express ideas reference, paranoid ideation or delusions. Her thinking was abstract and her associations were coherent and logical. She denied hallucinations and did not appear to be responding to internal stimuli. Assessment: She is chronically depressed and he showed minimal response to treatment with a single antidepressant. She would benefit from combined treatment or referral for ECT. She would also be a candidate for treatment with esketamine if it were available. Plan: Continue inpatient hospitalization. Continue safety precautions. Begin clomipramine 25 mg daily and titrated according to clinical response and tolerance with the target range of 120 mg daily. Begin lithium 300 mg 3 times a day for augmentation of the antidepressant. Continue discussion on referral for ECT. Continue NovoLog, Levemir, Synthroid, Cogentin,, Glucophage and Protonix as recommended by the contract consultant hospitalists. Habitrol for smoking cessation. Encourage participation in therapeutic groups and activities. Evaluate clinical status response to treatment daily basis.
[2019-09-21] MEDS: LITHIUM CARBONATE 300 MG CAP PO SCH ×2 (15:40→20:38)
[2019-09-21] MEDS ORDERED: HYDROcodone/APAP 5-325MG 1 EACH TAB PO PRN (16:59)
[2019-09-21 17:51] LABS: Glucose,Whole Blood 218 mg/dL (75-99)
[2019-09-21] MEDS: INSULIN DETEMIR (LEVEMIR) 100 UNIT/ML SYR SQ SCH (20:38)
[2019-09-21 20:44] LABS: Glucose,Whole Blood 184 mg/dL (75-99)
[2019-09-22] MEDS: ACETAMINOPHEN TAB 325 MG TAB PO PRN (02:05)
[2019-09-22] MEDS: LEVOTHYROXINE 75 MCG TAB PO SCH (06:31)
[2019-09-22] MEDS: metFORMIN 500 MG TAB PO SCH ×2 (08:11→17:49)
[2019-09-22] MEDS: NICOTINE 21MG/24HR PATCH TRANSDERM SCH (08:11)
[2019-09-22] MEDS: LITHIUM CARBONATE 300 MG CAP PO SCH ×3 (08:11→22:10)
[2019-09-22] MEDS: PANTOPRAZOLE 40 MG TABLET PO SCH (08:11)
[2019-09-22] MEDS: LINAGLIPTIN 5 MG TABLET PO SCH (08:12)
[2019-09-22] MEDS: INSULIN ASPART (NovoLOG) 100 UNIT/ML VIAL SQ SCH ×7 (08:12→22:09)
[2019-09-22 08:17] LABS: Glucose,Whole Blood 176 mg/dL (75-99)
[2019-09-22] MEDS ORDERED: LORazepam 1 MG TAB PO ONE (08:43)
[2019-09-22 12:52] LABS: Glucose,Whole Blood 215 mg/dL (75-99)
--- NOTE | 2019-09-22 13:03 | P.PN ---
Progress Note - Text Interval history: The patient is found in her room she follows me to an interview room. The patient was admitted for acute symptoms of depression she indicated that she had overdosed with several medications as a suicide attempt prior to admission. She has recently been started on clomipramine and lithium. She states that she cannot tolerate the clomipramine and will not take that anymore. She was acutely anxious this morning we did give her a milligram of Ativan to calm her anxiety. She continues to endorse severe symptoms of depression she states that she is afraid her marriage is falling apart and she can't live without her . She states that this is very difficult being confined. Staff reported she signed an AMA form. I did review the last progress note she has been tried on several different antidepressants. She states that she will only go back on Effexor in place of the clomipramine. She is willing to continue with the lithium as an augmentation strategy. Mental status exam: The patient is an obese female appearing her stated age. She has a disheveled appearance hygiene is adequate grooming spare. Eye contact is intermittent. She is tearful throughout the entire session. She reports continued hopelessness thinking suicidal ideation. She reports feeling depressed. She describes having heightened anxiety. She reports no homicidal ideation intent or plan she is endorsing no auditory or visual hallucinations or specific delusions. She does not appear hypomanic or manic. Thought process can be circumstantial at times she demonstrates no tangential thinking loose associations or flight of ideas. She demonstrates no verbal or physical aggressiveness she demonstrates no involuntary repetitive movements. Insight and judgment impaired. He describes severe symptoms of depression and also states she wants to be discharged. Plan: The patient will continue on the lithium. She is refusing to continue the clomipramine and states she wants the Effexor restarted. We will restart that 75 mg daily and likely that can be titrated further. We can continue to review any other alternatives to the Effexor. She has not been attending group she is encouraged to participate in the milieu. She expects a visit from her this evening we will await the outcome of that visit. Vital signs reviewed. She requires continued psychiatric hospitalization.
[2019-09-22] MEDS: LORazepam 1 MG TAB PO PRN (16:43)
[2019-09-22 17:57] LABS: Glucose,Whole Blood 254 mg/dL (75-99)
[2019-09-22] MEDS ORDERED: ZIPRASIDONE 20 MG VIAL IM STA (19:48)
[2019-09-22] MEDS: INSULIN DETEMIR (LEVEMIR) 100 UNIT/ML SYR SQ SCH (22:09)
[2019-09-22 22:13] LABS: Glucose,Whole Blood 205 mg/dL (75-99)
[2019-09-23] MEDS: LEVOTHYROXINE 75 MCG TAB PO SCH (06:01)
[2019-09-23 07:46] LABS: Glucose,Whole Blood 215 mg/dL (75-99)
[2019-09-23] MEDS: LITHIUM CARBONATE 300 MG CAP PO SCH ×3 (08:08→20:50)
[2019-09-23] MEDS: LINAGLIPTIN 5 MG TABLET PO SCH (08:08)
[2019-09-23] MEDS: INSULIN ASPART (NovoLOG) 100 UNIT/ML VIAL SQ SCH ×7 (08:08→20:49)
[2019-09-23] MEDS: NICOTINE 21MG/24HR PATCH TRANSDERM SCH (08:08)
[2019-09-23] MEDS: metFORMIN 500 MG TAB PO SCH ×2 (08:08→16:49)
[2019-09-23] MEDS: PANTOPRAZOLE 40 MG TABLET PO SCH (08:08)
[2019-09-23] MEDS: VENLAFAXINE HCL ER 75 MG CAP PO SCH (08:08)
[2019-09-23] MEDS: LORazepam 1 MG TAB PO PRN (08:50)
[2019-09-23 13:00] LABS: Glucose,Whole Blood 176 mg/dL (75-99)
--- NOTE | 2019-09-23 14:31 | P.PN ---
Progress Note - Text Interval history: The patient is found in her room she follows me to an interview room. She indicates her mood is very depressed. She spoke to her via phone and he did not visit last evening. She expresses feelings of being uncared for. She is afraid that he might try to leave her. She focuses on medication management we discussed that she seems to be struggling with issues that are also psychological in nature. She describes how her marriage has changed with her . She blames herself and her depression for the decline in their marriage. In talking to her more it seems that she may have some cluster B personality disorder traits. She states Dr. Ibarra did talk to her about possibly using spravato with [facility] and we also discussed the possibility of her trying to get into some DBT type therapy. Mental status exam: The patient is an overweight female she presents appearing disheveled she is tearful throughout the session. She endorses a depressed mood she states "I don't know why I'm like this". The patient states that her daughter would be better off if the patient was . The patient reports continued hopelessness thinking. She reports no homicidal ideation intent or plan she describes no auditory or visual hallucinations or specific delusions. She demonstrates no tangential thinking loose associations or flight of ideas. She does not appear to be hypomanic or manic. Affect is dysphoric throughout the session. Insight and judgment impaired. Plan: The patient will be continued on her current medication. She no longer wished to take the clomipramine so we restarted the Effexor. She may benefit from an alternative medicine. She may have benefit from DBT type therapy as an outpatient if she qualified to go to [facility]. Vital signs reviewed. She is encouraged to participate in the milieu.
[2019-09-23 17:37] LABS: Glucose,Whole Blood 270 mg/dL (75-99)
[2019-09-23 20:27] LABS: Glucose,Whole Blood 214 mg/dL (75-99)
[2019-09-23] MEDS: INSULIN DETEMIR (LEVEMIR) 100 UNIT/ML SYR SQ SCH (20:50)
[2019-09-24] MEDS: ACETAMINOPHEN TAB 325 MG TAB PO PRN ×3 (00:15→23:11)
[2019-09-24 05:25] LABS: Glucose,Whole Blood 164 mg/dL (75-99)
[2019-09-24] MEDS: LEVOTHYROXINE 75 MCG TAB PO SCH (05:45)
[2019-09-24 06:06] LABS: Appearance,Urine Cloudy (Clear); Bacteria,Urine Many /hpf; Bilirubin,Urine Negative (Negative); Blood,Urine Trace (Negative); Color,Urine Yellow; Glucose,Urine (UA) Negative (Negative); Granular Casts,Urine 28 /lpf (0); Hyaline Casts,Urine 39 /lpf (0-2); Ketones,Urine Negative (Negative); Leukocyte Esterase,Urine Large (Negative); Mucus,Urine Rare /hpf; Nitrite,Urine Negative (Negative); PH, Urine 5.5 (5.0-8.0); Protein,Urine 2+ (Negative); RBC,Urine 8 /hpf (0-5); Specific Gravity,Urine 1.015 (1.001-1.035); Squamous Epithelial Cell,Urine 8 /hpf (0-4); Urobilinogen,Urine <2.0 mg/dL (<2.0); WBC,Urine 169 /hpf (0-5)
[2019-09-24 07:54] LABS: Glucose,Whole Blood 238 mg/dL (75-99)
[2019-09-24] MEDS: INSULIN ASPART (NovoLOG) 100 UNIT/ML VIAL SQ SCH ×7 (07:57→20:04)
[2019-09-24] MEDS: metFORMIN 500 MG TAB PO SCH (08:03)
[2019-09-24] MEDS: VENLAFAXINE HCL ER 75 MG CAP PO SCH (08:03)
[2019-09-24] MEDS: LITHIUM CARBONATE 300 MG CAP PO SCH ×3 (08:04→20:07)
[2019-09-24] MEDS: NICOTINE 21MG/24HR PATCH TRANSDERM SCH (08:04)
[2019-09-24] MEDS: PANTOPRAZOLE 40 MG TABLET PO SCH (08:04)
[2019-09-24] MEDS: LINAGLIPTIN 5 MG TABLET PO SCH (08:04)
[2019-09-24] MEDS ORDERED: VENLAFAXINE HCL ER 75 MG CAP PO ONE (09:00)
[2019-09-24 12:37] LABS: Glucose,Whole Blood 169 mg/dL (75-99)
--- NOTE | 2019-09-24 14:50 | P.PN ---
Progress Note - Text Progress Note Date: 09/24/19 Clinical Problems: Major depressive disorder severe without psychotic features, suicide attempt by overdose of prescription medications, excoriation disorder, marital problems Interim history: I reviewed the medical record, interviewed the patient and discussed her treatment and treatment plan during team meeting. She signed a three-day notice on 09/22/2019. She requested to be discharged and promised to follow outpatient treatment. She talked about missing her daughter. She was distressed over the weekend following arguments with her . She would not talk about the subject of their arguments. The on-call psychiatrist discontinued clomipramine over the weekend. She complained of adverse reaction. During our interview she alleged she had a "seizure in my head" after taking the first dose and refused to continue the medication. She requests to continue with Effexor. She denied side effects to lithium. We discussed her three-day notice and request for discharge during team meeting. Considering the circumstances that brought her to the hospital (suicide attempt by overdose of medications) the recommendation is to request that her completed a petition if she does not withdrawal three-day notice. She remains ambivalent about ECT. Mental status exam: She presented as a casually groomed moderate obese 39-year-old female who was pleasant on approach. She made eye contact and appeared to attend to the interview. She had no new lesions on the back of her left hand from skin picking but the area is erythematous. She had a sad facial expression and she cried intermittently during interview. She was alert and oriented to person place and time. She had psychomotor retardation but no abnormal movements. Her speech was not spontaneous and had decreased rate, rhythm and volume. Her affect was depressed and not reactive. She denied current suicidal ideation or wishes. She continues to express feelings of hopelessness, helplessness and worthlessness. She did not express ideas reference, paranoid ideation or delusions. Her thinking was abstract and her associations were coherent and logical. She denied hallucinations and did not appear to be responding to internal stimuli. Assessment: She is chronically depressed and he showed minimal response to treatment with a single antidepressant. She would benefit from a combined treatment or referral for ECT. She would also be a candidate for treatment with esketamine if it were available. Plan: Pursue involuntary hospitalization if she refuses to withdraw the three- day notice. Continue inpatient hospitalization. Continue safety precautions. Increase Effexor XR to 150 mg daily and titrated according clinical response and tolerance. Continue lithium 300 mg 3 times a day for augmentation of the antidepressant obtain lithium level on 09/16/2019. Continue discussion on referral for ECT. Continue NovoLog, Levemir, Synthroid, Cogentin,, Glucophage and Protonix as recommended by the internet marketing consultant hospitalists. Habitrol for smoking cessation. Encourage participation in therapeutic groups and activities. Evaluate clinical status response to treatment daily basis.
--- NOTE | 2019-09-24 14:58 | US ---
EXAMINATION TYPE: US kidneys/renal and bladder DATE OF EXAM: 09/24/2019 COMPARISON: 09/01/2019 CLINICAL HISTORY: stone pyelo. Left flank pain x 1 day, history of kidney stones EXAM MEASUREMENTS: Right Kidney: 11.9 x 5.6 x 4.7 cm Left Kidney: 10.8 x 5.2 x 4.0 cm Right Kidney: no hydronephrosis or masses seen Left Kidney: no hydronephrosis or masses seen Bladder: wnl Bilateral Jets seen: no Spleen: enlarged at 14.4cm There is no evidence for hydronephrosis at this point in time. No nephrolithiasis is seen. No harmony s are identified. The urinary bladder is anechoic. Bilateral ureteral jets are seen. IMPRESSION: 1. Splenomegaly. 2. No hydronephrosis or nephrolithiasis.
[2019-09-24] MEDS: SULFAMETHOX-TMP 800-160MG 1 EACH TAB PO SCH ×2 (15:00→20:07)
[2019-09-24 16:00] LABS: HGB 14.7 gm/dL (11.4-16.0); MCH 31.8 pg (25.0-35.0); MCHC 33.4 g/dL (31.0-37.0); MCV 95.1 fL (80.0-100.0); Mean Platelet Volume 7.7; Platelet Count 265 k/uL (150-450); RBC 4.62 m/uL (3.80-5.40); RDW 13.7 % (11.5-15.5); WBC 10.7 k/uL (3.8-10.6)
[2019-09-24] MEDS ORDERED: SODIUM CHLORIDE 0.9% 1,000 ML IV ONE (16:10)
[2019-09-24] MEDS ORDERED: SODIUM CHLORIDE 0.9% 500 ML 500 ML IV ONE (16:10)
[2019-09-24 16:11] LABS: Calcium 11.7 mg/dL (8.4-10.2)
[2019-09-24] MEDS ORDERED: ONDANSETRON 4 MG TAB PO PRN (16:12)
[2019-09-24 17:25] LABS: Glucose,Whole Blood 170 mg/dL (75-99)
--- NOTE | 2019-09-24 19:59 | P.PN ---
Subjective Progress Note Date: 09/24/19 (seen at 1600) Principal diagnosis: dysuria and back pain Patient is a 39-year-old female currently admitted to the mental health unit. Called to see patient by nursing secondary to back pain and concerns for kidney stone as well as abnormal urinalysis Patient seen and examined at bedside with nursing present. She reports that she has having left flank pain, nausea, urinary frequency, and some dysuria. She feels as though she has a urinary tract infection or kidney stone. She denies any fever or chills. She does report some decreased appetite. She did report to nursing was in the room that she has cloudy looking urine but it is not dark or malodorous. Objective - Vital Signs Vital signs: Vital Signs Temp 98.0 F 09/24/19 08:00 Pulse 107 H 09/24/19 18:43 Resp 14 09/24/19 18:43 BP 96/52 09/24/19 18:43 Pulse Ox 96 09/21/19 06:48 Intake & Output 09/24/19 09/24/19 09/25/19 06:59 18:59 06:59 Intake Total 1500 Balance 1500 Weight 107.6 kg Intake: Intake, IV Titration 1500 Amount Sodium Chloride 0.9% 1, 1000 000 ml @ 999 mls/hr IV . Q1H1M ONE Rx#:[id number] Sodium Chloride 0.9% 500 500 ml 500 ml @ 999 mls/hr IV .Q31M ONE Rx#:[id number] - Exam General: non toxic, no distress, appears at stated age Derm: warm, dry Head: atraumatic, normocephalic, symmetric Eyes: EOMI, no lid lag, anicteric sclera Mouth: no lip lesion, mucus membranes moist Cardiovascular: S1S2 reg, no murmur, positive posterior tibial pulse bilateral, Lungs: CTA bilateral, no rhonchi, no rales , no accessory muscle use Abdominal: soft, nontender to palpation, no guarding, no appreciable organomegaly, + CVA tenderness on the left Ext: no gross muscle atrophy, no edema, no contractures Neuro: CN II-XI grossly intact, no focal neuro deficits Psych: Alert, oriented, flat affect - Labs CBC & Chem 7: 09/24/19 15:12 09/24/19 15:12 Labs: Abnormal Lab Results - Last 24 Hours (Table) 09/23/19 09/24/19 09/24/19 Range/Units 20:24 05:24 05:45 WBC (3.8-10.6) k/uL Sodium (137-145) mmol/L Carbon Dioxide (22-30) mmol/L BUN (7-17) mg/dL Creatinine (0.52-1.04) mg/dL Glucose (74-99) mg/dL POC Glucose (mg/dL) 214 H 164 H (75-99) mg/dL Calcium (8.4-10.2) mg/dL Urine Appearance Cloudy H (Clear) Urine Protein 2+ H (Negative) Urine Blood Trace H (Negative) Ur Leukocyte Esterase Large H (Negative) Urine RBC 8 H (0-5) /hpf Urine WBC 169 H (0-5) /hpf Urine WBC Clumps Many H (None) /hpf Ur Squamous Epith Cells 8 H (0-4) /hpf Urine Bacteria Many H (None) /hpf Hyaline Casts 39 H (0-2) /lpf Urine Mucus Rare H (None) /hpf 09/24/19 09/24/19 09/24/19 Range/Units 07:53 12:33 15:12 WBC 10.7 H (3.8-10.6) k/uL Sodium (137-145) mmol/L Carbon Dioxide (22-30) mmol/L BUN (7-17) mg/dL Creatinine (0.52-1.04) mg/dL Glucose (74-99) mg/dL POC Glucose (mg/dL) 238 H 169 H (75-99) mg/dL Calcium (8.4-10.2) mg/dL Urine Appearance (Clear) Urine Protein (Negative) Urine Blood (Negative) Ur Leukocyte Esterase (Negative) Urine RBC (0-5) /hpf Urine WBC (0-5) /hpf Urine WBC Clumps (None) /hpf Ur Squamous Epith Cells (0-4) /hpf Urine Bacteria (None) /hpf Hyaline Casts (0-2) /lpf Urine Mucus (None) /hpf 09/24/19 09/24/19 Range/Units 15:12 17:23 WBC (3.8-10.6) k/uL Sodium 136 L (137-145) mmol/L Carbon Dioxide 21 L (22-30) mmol/L BUN 29 H (7-17) mg/dL Creatinine 2.04 H (0.52-1.04) mg/dL Glucose 176 H (74-99) mg/dL POC Glucose (mg/dL) 170 H (75-99) mg/dL Calcium 11.7 H (8.4-10.2) mg/dL Urine Appearance (Clear) Urine Protein (Negative) Urine Blood (Negative) Ur Leukocyte Esterase (Negative) Urine RBC (0-5) /hpf Urine WBC (0-5) /hpf Urine WBC Clumps (None) /hpf Ur Squamous Epith Cells (0-4) /hpf Urine Bacteria (None) /hpf Hyaline Casts (0-2) /lpf Urine Mucus (None) /hpf Assessment and Plan Assessment: Urinary tract infection in a diabetic patient, complicated -1.5 L IV fluid bolus -Maintain IV in place after fluid pulse was done -Start Bactrim -Urine cultures -Repeat CBC in a.m. -Follow fever profile Acute kidney injury with creatinine of 2 -Renal ultrasound with no evidence of hydronephrosis or stone -Suspect secondary to metformin use on top of dehydration -IV fluid bolus -Encourage oral fluids overnight -Avoid additional nephrotoxic agents -stop metformin -Repeat basic metabolic profile in a.m. Diabetes mellitus type 2 with hyperglycemia -Continue with sliding scale insulin -Continue with fixed dose insulin but decreased to 2 units daily -Continue with Levemir -Continue her Tradjenta -Hold metformin Low threshold for transfer if patient's condition worsens. Will re-eval patient in AM
[2019-09-24 20:01] LABS: Glucose,Whole Blood 229 mg/dL (75-99)
[2019-09-24] MEDS: INSULIN DETEMIR (LEVEMIR) 100 UNIT/ML SYR SQ SCH (20:05)
[2019-09-25] MEDS: LEVOTHYROXINE 75 MCG TAB PO SCH (06:39)
[2019-09-25 07:50] LABS: Glucose,Whole Blood 201 mg/dL (75-99)
[2019-09-25] MEDS: INSULIN ASPART (NovoLOG) 100 UNIT/ML VIAL SQ SCH ×7 (08:06→20:07)
[2019-09-25] MEDS: NICOTINE 21MG/24HR PATCH TRANSDERM SCH (08:07)
[2019-09-25] MEDS: SULFAMETHOX-TMP 800-160MG 1 EACH TAB PO SCH ×2 (08:07→20:08)
[2019-09-25] MEDS: LITHIUM CARBONATE 300 MG CAP PO SCH (08:07)
[2019-09-25] MEDS: LINAGLIPTIN 5 MG TABLET PO SCH (08:07)
[2019-09-25] MEDS: VENLAFAXINE HCL ER 150 MG CAP PO SCH (08:07)
[2019-09-25] MEDS: PANTOPRAZOLE 40 MG TABLET PO SCH (08:07)
[2019-09-25] MEDS: ACETAMINOPHEN TAB 325 MG TAB PO PRN ×2 (08:09→23:24)
[2019-09-25 09:27] LABS: HGB 14.9 gm/dL (11.4-16.0); MCH 31.7 pg (25.0-35.0); MCHC 33.1 g/dL (31.0-37.0); MCV 95.7 fL (80.0-100.0); Mean Platelet Volume 7.1; Platelet Count 298 k/uL (150-450); RBC 4.71 m/uL (3.80-5.40); RDW 13.6 % (11.5-15.5)
[2019-09-25 09:43] LABS: Calcium 11.5 mg/dL (8.4-10.2); Potassium 3.8 mmol/L (3.5-5.1)
[2019-09-25] MEDS: LORazepam 1 MG TAB PO PRN (11:19)
[2019-09-25 13:00] LABS: Glucose,Whole Blood 205 mg/dL (75-99)
--- NOTE | 2019-09-25 14:46 | P.PN ---
Progress Note - Text Progress Note Date: 09/25/19 Clinical Problems: Major depressive disorder severe without psychotic features, suicide attempt by overdose of prescription medications, excoriation disorder, marital problems Interim history: I reviewed the medical record, interviewed the patient and discussed her treatment and treatment plan during team meeting. She became enraged when I informed her that the team does not support discharge. She accused me of keeping her hospital for my financial benefit (she was vulgar when she expressed this to me). She demand the reason we will not discharge her. When I explained are concerned about her safety and reminded her reason for this admission she replied "So what. So what that I tried to overdose. I didn't succeed did I? ..." I explained the process for involuntary hospitalization. She stormed out of my office. She later returned and asked me "How do I withdraw that fg paper so we don't force her to stay here?" housekeeper/custodian/laundry worker informed us that her has obtained divorce papers. She developed acute kidney injury, elevated BUN and hypercalcemia over the last 2 days. Medicine consult appreciated. Treatment included IV bolus of normal saline and the hospitalist recommended to discontinue metformin. I discontinued lithium because of the risk of acute lithium toxicity in the presence of dehydration and impaired kidney functioning. Mental status exam: She presented as a casually groomed moderate obese 39-year-old female who unpleasant, angry and vulgar. She made eye contact and appeared to attend to the interview. She had no new lesions on the back of her left hand from skin picking but the area is erythematous. She had a had an angry facial expression. She was stomping along the hallway. Her speech was loud and accusatory. Her affect was angry and hostile. She would not answer questions about suicidality. She did not express ideas reference, paranoid ideation or delusions. Her thinking was abstract and her associations were coherent and logical. She denied hallucinations and did not appear to be responding to internal stimuli. Assessment: She is angry that we have not agreed with request to be discharged. I suspect that she is displaying personality characteristics that may have contributed to her interpersonal problems. Plan: Pursue involuntary hospitalization if she refuses to withdraw the three- day notice. Continue inpatient hospitalization. Continue safety precautions. Increase Effexor XR to 150 mg daily and titrated according clinical response and tolerance. Stop lithium 300 mg 3 times a day. Discuss treatment with second- generation antipsychotic. Continue discussion on referral for ECT. Continue No voLog, Levemir, Synthroid, Cogentin,and Protonix as recommended by the fashion consultant hospitalists. Habitrol for smoking cessation. Encourage participation in therapeutic groups and activities. Evaluate clinical status response to treatment daily basis.
[2019-09-25] MEDS ORDERED: SODIUM CHLORIDE 0.9% 1,000 ML IV ONE (16:07)
--- NOTE | 2019-09-25 17:32 | P.PN ---
Subjective Progress Note Date: 09/25/19 Principal diagnosis: UTI Patient was seen and examined. No acute events overnight. Patient with no complaints. Upset that she can't leave mental health unit and go home. She d enies any dysuria. No fever or chills. No abdominal pain. No chest pain, shortness of breath or palpitations. Objective - Vital Signs Vital signs: Vital Signs Temp 98.9 F 09/25/19 14:30 Pulse 113 H 09/25/19 14:30 Resp 16 09/25/19 14:30 BP 90/51 09/25/19 14:30 Pulse Ox 97 09/25/19 05:45 Intake & Output 09/24/19 09/25/19 09/25/19 18:59 06:59 18:59 Intake Total 1500 Balance 1500 Weight 107.6 kg Intake: Intake, IV Titration 1500 Amount Sodium Chloride 0.9% 1, 1000 000 ml @ 999 mls/hr IV . Q1H1M ONE Rx#:[id number] Sodium Chloride 0.9% 500 500 ml 500 ml @ 999 mls/hr IV .Q31M ONE Rx#:[id number] - Exam General: [non toxic], [no distress], [appears at stated age] Derm: [warm], [dry] Head: [atraumatic], [normocephalic], [symmetric] Eyes: [EOMI], [no lid lag], [anicteric sclera] Mouth: [no lip lesion], [mucus membranes moist] Cardiovascular: [S1S2 reg], [tachycardia], [positive DP pulse bilateral], Lungs: [CTA bilateral], [no rhonchi, no rales] , [no accessory muscle use] Abdominal: [soft], [ nontender to palpation], [no guarding], [no appreciable organomegaly] Ext: [no gross muscle atrophy], [no edema], [no contractures] Neuro: [no focal neuro deficits] Psych: [Alert], [oriented], [appropriate affect] - Labs CBC & Chem 7: 09/25/19 08:22 09/25/19 08:22 Labs: Abnormal Lab Results - Last 24 Hours (Table) 09/24/19 09/24/19 09/25/19 Range/Units 17:23 19:58 07:49 WBC (3.8-10.6) k/uL BUN (7-17) mg/dL Creatinine (0.52-1.04) mg/dL Glucose (74-99) mg/dL POC Glucose (mg/dL) 170 H 229 H 201 H (75-99) mg/dL Calcium (8.4-10.2) mg/dL 09/25/19 09/25/19 09/25/19 Range/Units 08:22 08:22 12:58 WBC 12.0 H (3.8-10.6) k/uL BUN 23 H (7-17) mg/dL Creatinine 1.57 H (0.52-1.04) mg/dL Glucose 223 H (74-99) mg/dL POC Glucose (mg/dL) 205 H (75-99) mg/dL Calcium 11.5 H (8.4-10.2) mg/dL Assessment and Plan Assessment: Urinary tract infection in a diabetic patient, complicated Acute kidney injury Diabetes mellitus with hyperglycemia Leukocytosis of 10.7 to 12. UA showing large leukocyte esterase. Afebrile. BP 90/51 heart rate 113. Plans: Bolus 1 L. Continue Bactrim. Obtain urine and blood culture. Obtain lactic acid. Reassess blood pressure and pulse. Plans to transfer to medical floor if not improved by tomorrow. Repeat CBC tomorrow morning. Creatinine 1.57. Likely due to dehydration. Plans: Bolus 1 L. Encourage hydration by mouth. Avoid nephrotoxic medications. Repeat BMP tomorrow morning. [id number] glucose 205. Plans: Continue Levemir 10 units at bedtime. NovoLog 2 units 3 times a day with meals. Regular Accu-Cheks. Hypoglycemic precautions. [Patient being treated for UTI. States that her heart rate is usually on the higher side. Plans to bolus an additional liter. Transfer to inpatient if not improved by tomorrow.]
[2019-09-25 18:01] LABS: Glucose,Whole Blood 211 mg/dL (75-99)
[2019-09-25 20:06] LABS: Glucose,Whole Blood 244 mg/dL (75-99)
[2019-09-25] MEDS: INSULIN DETEMIR (LEVEMIR) 100 UNIT/ML SYR SQ SCH (21:26)
[2019-09-26] MEDS ORDERED: INSULIN DETEMIR (LEVEMIR) 100 UNIT/ML SYR SQ ONE (00:45)
[2019-09-26 01:43] LABS: Glucose,Whole Blood 165 mg/dL (75-99)
[2019-09-26] MEDS: LEVOTHYROXINE 75 MCG TAB PO SCH (06:30)
[2019-09-26 07:49] LABS: Glucose,Whole Blood 192 mg/dL (75-99)
[2019-09-26] MEDS: PANTOPRAZOLE 40 MG TABLET PO SCH (08:26)
[2019-09-26] MEDS: VENLAFAXINE HCL ER 150 MG CAP PO SCH (08:26)
[2019-09-26] MEDS: INSULIN ASPART (NovoLOG) 100 UNIT/ML VIAL SQ SCH ×7 (08:26→20:21)
[2019-09-26] MEDS: SULFAMETHOX-TMP 800-160MG 1 EACH TAB PO SCH ×2 (08:26→20:28)
[2019-09-26] MEDS: LINAGLIPTIN 5 MG TABLET PO SCH (08:26)
[2019-09-26 08:29] LABS: HCT 40.4 % (34.0-46.0); HGB 14.3 gm/dL (11.4-16.0); MCH 33.6 pg (25.0-35.0); MCHC 35.3 g/dL (31.0-37.0); Mean Platelet Volume 7.7; Platelet Count 222 k/uL (150-450); RBC 4.25 m/uL (3.80-5.40); RDW 13.6 % (11.5-15.5); WBC 7.3 k/uL (3.8-10.6)
[2019-09-26] MEDS: ACETAMINOPHEN TAB 325 MG TAB PO PRN ×3 (11:11→23:35)
[2019-09-26 12:53] LABS: Glucose,Whole Blood 211 mg/dL (75-99)
--- NOTE | 2019-09-26 14:09 | P.PN ---
Progress Note - Text Progress Note Date: 09/26/19 Patient's vital signs have improved. Her tachycardia has resolved. Her leukocytosis has resolved. Her acute kidney injury is resolving. Urine culture and blood culture pending. Lactic acid is negative from yesterday. We'll continue current management. Antibiotic to be adjusted depending on culture results.
--- NOTE | 2019-09-26 14:26 | P.PN ---
Progress Note - Text Progress Note Date: 09/26/19 Clinical Problems: Major depressive disorder severe without psychotic features, suicide attempt by overdose of prescription medications, excoriation disorder, marital problems, rule out personality disorder, dehydration resulting, acute kidney injury resolving, urinary tract infection Interim history: I reviewed the medical record, interviewed the patient and discussed her treatment and treatment plan during team meeting. She slipped a note under my door where she apologized for her behavior yesterday. She was reluctant but agreed to an interview. She complained about continued hospitalization. She believes that were keeping her hospital because we have not "forgiven her" for overdosing on prescription medications. She admitted that the overdose "was a mistake." She was distressed and "wasn't thinking." She would not accept my explanation that we wanted her to remain in the hospital because we are worried about her safety. When I try to engage her in a discussion about her disbelief of our intentions she abruptly left the office. During the interview she stated that she is feeling better "much better than I felt before." She talked about feeling "numb for several years." She rescinded the three-day notice. She received 1000 mL also normal saline yesterday privacy. Her last dose of lithium was yesterday morning at 8:07. Her lithium level this morning was 1.0. Both the BUN and creatinine are improving. Results this morning were 21 and 1.36 respectively. The training consultant started Bactrim DS for treatment of urinary tract infection; urine culture and sensitivity are pending. Mental status exam: She presented as a casually groomed moderate obese 39-year-old female who angry and sarcastic. She made eye contact and appeared to attend to the interview. She had no new lesions on the back of her left hand from skin picking but the area is erythematous. She had a had an angry facial expression. She was not agitated or restless. Her speech was spontaneous and consistent with her mood. Her affect was angry. She denied suicidal ideation or wishes. She did not express clear ideas reference or paranoid ideation. Her thinking was concrete but his associations were coherent and logical. She denied hallucinations and did not appear to be responding to internal stimuli. Assessment: She remains angry but but alleged that overall her mood is improved from admission. Plan: Continue inpatient hospitalization. Continue safety precautions. Continue Effexor XR to 150 mg daily and titrated according clinical response and tolerance. Continue to hold lithium 300 mg 3 times a day due to the acute kidney injury. Discuss treatment with second-generation antipsychotic. Plan for discharge on 09/27/2019. Continue NovoLog, Levemir, Synthroid, Cogentin,and Protonix as recommended by the data communications software consultant hospitalists. Habitrol for smoking cessation. Encourage participation in therapeutic groups and activities. Evaluate clinical status response to treatment daily basis.
[2019-09-26 17:33] LABS: Glucose,Whole Blood 259 mg/dL (75-99)
[2019-09-26] MEDS ORDERED: INSULIN ASPART (NovoLOG) 100 UNIT/ML VIAL SQ ONE (17:45)
[2019-09-26 20:07] LABS: Glucose,Whole Blood 307 mg/dL (75-99)
[2019-09-26] MEDS ORDERED: INSULIN DETEMIR (LEVEMIR) 100 UNIT/ML SYR SQ SCH (21:00)
[2019-09-27] MEDS: LEVOTHYROXINE 75 MCG TAB PO SCH (06:12)
[2019-09-27 06:48] VITALS: RESP 14
[2019-09-27 07:58] LABS: Glucose,Whole Blood 228 mg/dL (75-99)
[2019-09-27] MEDS: LINAGLIPTIN 5 MG TABLET PO SCH (08:11)
[2019-09-27] MEDS: VENLAFAXINE HCL ER 150 MG CAP PO SCH (08:11)
[2019-09-27] MEDS: SULFAMETHOX-TMP 800-160MG 1 EACH TAB PO SCH (08:11)
[2019-09-27] MEDS: PANTOPRAZOLE 40 MG TABLET PO SCH (08:11)
[2019-09-27] MEDS: INSULIN ASPART (NovoLOG) 100 UNIT/ML VIAL SQ SCH ×4 (08:12→12:58)
[2019-09-27 08:54] VITALS: BP 117/68; PULSE 87; TEMP 97.9
[2019-09-27] MEDS: ACETAMINOPHEN TAB 325 MG TAB PO PRN (09:22)
[2019-09-27 12:47] LABS: Glucose,Whole Blood 210 mg/dL (75-99)
--- NOTE | 2019-09-27 13:53 | P.DS ---
Providers Date of admission: 09/20/19 10:27 Attending physician: Antonio Ibarra MD Consults: 09/20/19 12:40 Consult Physician Routine Consulting Provider: Marlena Diana Consult Reason/Comments: H&P for mental health admission Do you want consulting provider notified?: Already Contacted Primary care physician: Francisco Barfield - Discharge Diagnosis(es) (1) Suicide attempt by multiple drug overdose Current Visit: Yes Status: Resolved Priority: High (2) Major depressive disorder Current Visit: Yes Status: Chronic Priority: Medium (3) Marital problem involving divorce Current Visit: Yes Status: Acute Priority: High (4) Personality disorder in adult Current Visit: Yes Status: Chronic Priority: Medium (5) Thyroid disease Current Visit: Yes Status: Chronic Priority: Low (6) Urinary tract infection Current Visit: Yes Status: Resolved Priority: High (7) Acute kidney injury Current Visit: Yes Status: Resolved Priority: Medium (8) Diabetes mellitus type 2 in obese Current Visit: Yes Status: Chronic Priority: Medium (9) Excoriation (skin-picking) disorder Current Visit: Yes Status: Chronic Priority: Low Hospital Course: The patient is a 38-year-old female transferred from medicine service following an attempted suicide attempt by overdose of prescription medications including Narco, Xanax and Effexor. She complained that she's been struggling with depression for "most of my life." Her depression worsened about 3 to 3 1/2 years ago after she stopped working. 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 She has since been at home. She alleged that her depression had become so severe that she is unable to care for herself, her home her family. She is fatigued "all day" and has no energy to care for herself, her home or family. She "lays in bed" all day watching television. Her behavior has resulted in marital discord. In April her told her that he could not "take this anymore" and told her that he "wants a divorce." She begged him to give her "6 more months". The day prior to admission he told her that things have not changed and he wants out of the marriage. She stated that she "could not live" without him and took the medication impulsively. She denied the action was planned or premeditated. She meets with a therapist at [facility] in [place], [place]. Her primary care provider has prescribed psychotropic medication that include Effexor XR, Xanax and Adderall. She stated that the physician prescribed Xanax for treatment of "severe" anxiety and prescribed Adderall because of persistent fatigue. She described classic symptoms of depression including persistent feelings of hopelessness and worthlessness, lack of energy, persistent guilt, anhedonia, recurrent thoughts of and suicide and hypersomnia. She also complained of persistent and disabling anxiety that fluctuates in intensity. She had multiple excoriations on the back of her left hand, forelegs and her abdomen from chronic skin picking. She denied other obsessions or compulsions. She denied experiencing such psychotic symptoms as hallucinations, paranoia or delusional thinking. She denied use of alcohol but smokes marijuana. She denied prior psychiatric hospitalizations. She first received treatment for depression when she was 17 years old. She alleged that she does not remember why she entered treatment. She denied past suicide attempts or gestures. She has been prescribed several antidepressant such as Prozac, Paxil, Celexa, Wellbutrin but she thinks she's been prescribed several other medications. We admitted her to the psychiatric unit under care of this director underwriter sales. We placed her on safety precautions due to history of a suicide attempt. We initially resumed Effexor 150 mg twice a day for the treatment of her depression. We consulted medicine service and they recommended to continue NovoLog 2 mg before meals 3 times a day as well as NovoLog sliding scale. They initiated treatment with Levemir 40 mg subcu at bedtime. We continued Synthroid 150 g daily, Cogentin 5 mg daily, Protonix 40 mg daily, metformin and Tradjenta 5 mg daily. We did not continue her outpatient prescriptions for narcotic and Adderall. Apparently her bureau director prescribed Adderall for several years for the treatment of chronic fatigue. Considering she showed limited response to her outpatient antidepressant and her history of skin excoriation disorder we attempted treatment with clomipramine getting a 25 mg per day and lithium 300 mg 3 times a day. She reported adverse effect following the first dose of clomipramine and requested to resume Effexor. She showed moderate response to combination of Effexor XL 150 daily as well as lithium carbonate 300 mg 3 times a day. She developed acute kidney injury with elevation of BUN and creatinine that the furniture rental consultant thought was most likely related to a urinary tract infection and metformin. He obtained a ultrasound with kidney, administered 1 L of normal saline and began Bactrim DS twice a day. The ultrasound showed no hydronephrosis no nephrolithiasis or masses. We discontinued lithium. Her kidney function gradually improved. She initially did not participate in therapeutic groups and activities. Over the 3 days prior to discharge she began to participate and engage in treatment activities. As her depression improved. She demonstrated more pathological personality characteristics. As a result, we are recommending individual therapy including referral for dialectical behavioral therapy. She described a suicide attempt past impulsive action to overwhelming stress. She remains concerns about her marriage and understands that her is most likely pursuing a divorce. She agreed to continue with outpatient treatment and the social worker masters coordinated aftercare through [facility]. Patient Condition at Discharge: Stable Plan - Discharge Summary Discharge Rx Participant: No New Discharge Prescriptions: New Sulfamethox-Tmp 800-160Mg [Bactrim DS 800-160 mg] 1 each PO BID 4 Days #8 tab Venlafaxine HCl ER [Effexor XR] 150 mg PO DAILY 30 Days #30 cap.er.24h Insulin Detemir (Levemir) [Levemir] 14 unit SQ HS 30 Days #4 syr Continue medroxyPROGESTERone [Depo-Provera] 150 mg IM Q84D Levothyroxine Sodium 150 mcg PO DAILY Omeprazole 20 mg PO BID Nicotine 21Mg/24Hr Patch [Habitrol] 1 patch TRANSDERM DAILY patch Linagliptin [Tradjenta] 5 mg PO DAILY tablet INSULIN ASPART (NovoLOG) [NovoLOG (formulary)] 5 unit SQ AC-TID vial Discontinued Venlafaxine HCl [Effexor XR] 150 mg PO BID HYDROcodone/APAP 10-325MG [[place] 10-325] 1 tab PO BID PRN PRN Reason: Pain Dextroamphetamine/Amphetamine [Adderall] 30 mg PO BID INSULIN ASPART (NovoLOG) [NovoLOG (formulary)] 0 unit SQ ACHS vial metFORMIN HCL [Glucophage] 1,000 mg PO BID-W/MEALS tab Discharge Medication List Levothyroxine Sodium 150 mcg PO DAILY 09/18/19 [History] Omeprazole 20 mg PO BID 09/18/19 [History] medroxyPROGESTERone [Depo-Provera] 150 mg IM Q84D 09/18/19 [History] INSULIN ASPART (NovoLOG) [NovoLOG (formulary)] 5 unit SQ AC-TID vial 09/20/19 [Rx] Linagliptin [Tradjenta] 5 mg PO DAILY tablet 09/20/19 [Rx] Nicotine 21Mg/24Hr Patch [Habitrol] 1 patch TRANSDERM DAILY patch 09/20/19 [Rx] Insulin Detemir (Levemir) [Levemir] 14 unit SQ HS 30 Days #4 syr 09/27/19 [Rx] Sulfamethox-Tmp 800-160Mg [Bactrim DS 800-160 mg] 1 each PO BID 4 Days #8 tab 09/27/19 [Rx] Venlafaxine HCl ER [Effexor XR] 150 mg PO DAILY 30 Days #30 cap.er.24h 09/27/19 [Rx] Follow up Appointment(s)/Referral(s): [facility] [Outside] - 10/02/19 10:30 am (Intake) [facility] [NON-STAFF] - 1 Week Patient Instructions/Handouts: Depression (DC), Suicide Prevention (DC) Activity/Diet/Wound Care/Special Instructions: Activity and diet as tolerated. Avoid the use of street drugs and alcohol. Take all medications as prescribed. When you are in need of refills on your medications please contact your medical provider and/or outpatient psychiatrist to have this done. Please go to scheduled outpatient appointment for aftercare treatment. If symptoms return or become worse, call the crisis line at and/or go to the nearest emergency room for evaluation.
== END 2019-09-27 14:11 | disposition home or self-care (01) | DRG 881 ==
LOC: 3MHU 10:27
PROVIDERS: ADMIT Psychiatry & Neurology Psychiatry; ATTEND Psychiatry & Neurology Psychiatry
DX: F32.9 Major depressive disorder, single episode, unspecified (principal); N17.9 Acute kidney failure, unspecified; N39.0 Urinary tract infection, site not specified; E11.65 Type 2 diabetes mellitus with hyperglycemia; E66.9 Obesity, unspecified; E07.9 Disorder of thyroid, unspecified; E83.52 Hypercalcemia; E86.0 Dehydration; F41.9 Anxiety disorder, unspecified; F42.4 Excoriation (skin-picking) disorder; F60.9 Personality disorder, unspecified; G47.10 Hypersomnia, unspecified; N20.0 Calculus of kidney; Z63.0 Problems in relationship with spouse or partner; Z79.4 Long term (current) use of insulin; Z79.899 Other long term (current) drug therapy; Z81.8 Family history of other mental and behavioral disorders; Z91.5 Personal history of self-harm
CPT/HCPCS: 76770; 80048; 80178; 81001; 83605; 85027; 87040; 87077; 87086; 87186

== ENCOUNTER 2020-07-24 13:16 | Inpatient (IN) | payer OTHER ==
[2020-07-24] MEDS ORDERED: ONDANSETRON 4 MG/2 ML VIAL IVP STA (14:38)
[2020-07-24] MEDS ORDERED: PANTOPRAZOLE 40 MG/10 ML VIAL IVP STA (14:38)
[2020-07-24] MEDS ORDERED: SODIUM CHLORIDE 0.9% 1,000 ML IV STA (14:38)
--- NOTE | 2020-07-24 14:46 | ED ---
General Adult HPI - General Chief complaint: Recheck/Abnormal Lab/Rx Stated complaint: Abn Labs Time Seen by Provider: 07/24/20 14:00 Source: patient, family, RN notes reviewed Mode of arrival: wheelchair Limitations: no limitations - History of Present Illness Initial comments: Patient is a pleasant 39-year-old female presenting to the emergency Department with abnormal labs. Patient had labwork done [address] Sarkar. They did receive a call and were reported to come to the emergency department, unclear why. Possibly abnormality with the pancreas. Patient states the past few months she has not felt well. Patient has not been eating well. Patient is lost approximately 40-50 pounds in the last 2 months. Patient has nausea and decreased appetite. Melena normal minimal amount of oral intake. No constipation or diarrhea. Patient does have mild "kidney discomfort" at times. No vomiting. No fevers. No abdominal pain. Patient has been fatigued. Patient does complain of paresthesias intermittently of her legs. - Related Data Home Medications Medication Instructions Recorded Confirmed Levothyroxine Sodium 150 mcg PO DAILY 09/18/19 09/21/19 Omeprazole 20 mg PO BID 09/18/19 09/21/19 medroxyPROGESTERone [Depo-Provera] 150 mg IM Q84D 09/18/19 09/21/19 Previous Rx's Medication Instructions Recorded INSULIN ASPART (NovoLOG) [NovoLOG 5 unit SQ AC-TID vial 09/20/19 (formulary)] Linagliptin [Tradjenta] 5 mg PO DAILY tablet 09/20/19 Nicotine 21Mg/24Hr Patch [Habitrol] 1 patch TRANSDERM DAILY patch 09/20/19 Insulin Detemir (Levemir) [Levemir] 14 unit SQ HS 30 Days #4 syr 09/27/19 Sulfamethox-Tmp 800-160Mg [Bactrim 1 each PO BID 4 Days #8 tab 09/27/19 DS 800-160 mg] Venlafaxine HCl ER [Effexor XR] 150 mg PO DAILY 30 Days #30 09/27/19 cap.er.24h Allergies Allergy/AdvReac Type Severity Reaction Status Date / Time No Known Allergies Allergy Verified 07/24/20 13:56 Review of Systems ROS Statement: Those systems with pertinent positive or pertinent negative responses have been documented in the HPI. ROS Other: All systems not noted in ROS Statement are negative. Constitutional: Denies: fever Eyes: Denies: eye pain ENT: Denies: ear pain Respiratory: Denies: cough Cardiovascular: Denies: chest pain Endocrine: Reports: fatigue Gastrointestinal: Reports: nausea. Denies: abdominal pain, vomiting Genitourinary: Denies: dysuria Musculoskeletal: Denies: arthralgia Skin: Denies: rash Neurological: Denies: headache Past Medical History Past Medical History: Diabetes Mellitus, GERD/Reflux, Thyroid Disorder Additional Past Medical History / Comment(s): kidney stones. History of Any Multi-Drug Resistant Organisms: ESBL Date of last positivie culture/infection: 09/25/19 ESBL E.coli MDRO Source:: Urine-ESBL Additional Past Surgical History / Comment(s): Cervical spine surgery, scoliosis repair, kidney stone surgeries, Right knee arthroscopy (cartilage removed), Csection Past Anesthesia/Blood Transfusion Reactions: No Reported Reaction Past Psychological History: Anxiety, Bipolar, Depression Smoking Status: Current every day smoker Past Alcohol Use History: None Reported Past Drug Use History: Marijuana - Past Family History Father Additional Family Medical History / Comment(s): Father in his 20s from suicide. Mother Additional Family Medical History / Comment(s): Mother is alive in her 50s with no major medical problems. Brother(s) Additional Family Medical History / Comment(s): Patient has 2 brothers with no major medical problems. Patient does not have any sisters. Patient has one daughter with no major medical problems. General Exam Limitations: no limitations General appearance: alert, in no apparent distress Head exam: Present: normocephalic Eye exam: Present: normal appearance ENT exam: Present: normal oropharynx Neck exam: Present: normal inspection Respiratory exam: Present: normal lung sounds bilaterally Cardiovascular Exam: Present: regular rate, normal rhythm GI/Abdominal exam: Present: soft. Absent: tenderness Extremities exam: Present: normal inspection Back exam: Present: normal inspection. Absent: CVA tenderness (R), CVA tenderness (L) Neurological exam: Present: alert, oriented X3, CN II-XII intact. Absent: motor sensory deficit Expanded Sensory exam: Upper Extremity Light Touch: Normal, Lower Extremity Light Touch: Normal Motor strength exam: RUE: 5, LUE: 5, RLE: 5, LLE: 5 Psychiatric exam: Present: flat affect Skin exam: Present: normal color Course Vital Signs 07/24/20 13:52 Temperature 98.4 F Pulse Rate 107 H Respiratory 18 Rate Blood Pressure 83/56 O2 Sat by Pulse 99 Oximetry EKG Findings - EKG Comments: EKG Findings:: Normal sinus rhythm 94. NM 142. QRS 94. QT 380. QTC 475. Left axis. Inferior Q waves. Lateral T wave inversion. Medical Decision Making - Medical Decision Making Patient reevaluated and resting comfortably in bed. Patient and family updated on results and plan. Dr. Lugo has been paged for admission covering for Dr. Sarkar - Lab Data Result diagrams: 07/24/20 14:48 07/24/20 14:48 Lab Results 07/24/20 07/24/20 07/24/20 Range/Units 14:48 14:48 14:48 WBC 10.1 (3.8-10.6) k/uL RBC 3.85 (3.80-5.40) m/uL Hgb 12.9 (11.4-16.0) gm/dL Hct 39.4 (34.0-46.0) % MCV 102.4 H (80.0-100.0) fL MCH 33.6 (25.0-35.0) pg MCHC 32.8 (31.0-37.0) g/dL RDW 16.5 H (11.5-15.5) % Plt Count 538 H (150-450) k/uL Neutrophils % 68 % Lymphocytes % 27 % Monocytes % 3 % Eosinophils % 0 % Basophils % 1 % Neutrophils # 6.9 (1.3-7.7) k/uL Lymphocytes # 2.7 (1.0-4.8) k/uL Monocytes # 0.3 (0-1.0) k/uL Eosinophils # 0.0 (0-0.7) k/uL Basophils # 0.1 (0-0.2) k/uL Poikilocytosis Slight Anisocytosis Slight Macrocytosis Moderate PT 11.2 (9.0-12.0) sec INR 1.1 (<1.2) APTT 27.4 (22.0-30.0) sec Sodium (137-145) mmol/L Potassium (3.5-5.1) mmol/L Chloride (98-107) mmol/L Carbon Dioxide (22-30) mmol/L Anion Gap mmol/L BUN (7-17) mg/dL Creatinine (0.52-1.04) mg/dL Est GFR (CKD-EPI)AfAm (>60 ml/min/1.73 sqM) Est GFR (CKD-EPI)NonAf (>60 ml/min/1.73 sqM) Glucose (74-99) mg/dL Calcium (8.4-10.2) mg/dL Total Bilirubin (0.2-1.3) mg/dL AST (14-36) U/L ALT (4-34) U/L Alkaline Phosphatase (38-126) U/L Creatine Kinase (30-135) U/L Troponin I (0.000-0.034) ng/mL Total Protein (6.3-8.2) g/dL Albumin (3.5-5.0) g/dL Amylase (30-110) U/L Lipase (23-300) U/L Urine Color Yellow Urine Appearance Cloudy H (Clear) Urine pH 6.0 (5.0-8.0) Ur Specific [place] 1.013 (1.001-1.035) Urine Protein 1+ H (Negative) Urine Glucose (UA) Negative (Negative) Urine Ketones Negative (Negative) Urine Blood Negative (Negative) Urine Nitrite Negative (Negative) Urine Bilirubin Negative (Negative) Urine Urobilinogen <2.0 (<2.0) mg/dL Ur Leukocyte Esterase Moderate H (Negative) Urine RBC 2 (0-5) /hpf Urine WBC 31 H (0-5) /hpf Ur Squamous Epith Cells 9 H (0-4) /hpf Urine Bacteria Many H (None) /hpf Hyaline Casts 1 (0-2) /lpf Urine Mucus Rare H (None) /hpf 07/24/20 07/24/20 Range/Units 14:48 14:48 WBC (3.8-10.6) k/uL RBC (3.80-5.40) m/uL Hgb (11.4-16.0) gm/dL Hct (34.0-46.0) % MCV (80.0-100.0) fL MCH (25.0-35.0) pg MCHC (31.0-37.0) g/dL RDW (11.5-15.5) % Plt Count (150-450) k/uL Neutrophils % % Lymphocytes % % Monocytes % % Eosinophils % % Basophils % % Neutrophils # (1.3-7.7) k/uL Lymphocytes # (1.0-4.8) k/uL Monocytes # (0-1.0) k/uL Eosinophils # (0-0.7) k/uL Basophils # (0-0.2) k/uL Poikilocytosis Anisocytosis Macrocytosis PT (9.0-12.0) sec INR (<1.2) APTT (22.0-30.0) sec Sodium 136 L (137-145) mmol/L Potassium 2.9 L (3.5-5.1) mmol/L Chloride 109 H (98-107) mmol/L Carbon Dioxide 15 L (22-30) mmol/L Anion Gap 12 mmol/L BUN 8 (7-17) mg/dL Creatinine 0.97 (0.52-1.04) mg/dL Est GFR (CKD-EPI)AfAm 85 (>60 ml/min/1.73 sqM) Est GFR (CKD-EPI)NonAf 74 (>60 ml/min/1.73 sqM) Glucose 217 H (74-99) mg/dL Calcium 10.1 (8.4-10.2) mg/dL Total Bilirubin 0.4 (0.2-1.3) mg/dL AST 22 (14-36) U/L ALT 12 (4-34) U/L Alkaline Phosphatase 159 H (38-126) U/L Creatine Kinase 56 (30-135) U/L Troponin I 0.038 H* (0.000-0.034) ng/mL Total Protein 6.0 L (6.3-8.2) g/dL Albumin 3.2 L (3.5-5.0) g/dL Amylase 88 (30-110) U/L Lipase 1347 H (23-300) U/L Urine Color Urine Appearance (Clear) Urine pH (5.0-8.0) Ur Specific [place] (1.001-1.035) Urine Protein (Negative) Urine Glucose (UA) (Negative) Urine Ketones (Negative) Urine Blood (Negative) Urine Nitrite (Negative) Urine Bilirubin (Negative) Urine Urobilinogen (<2.0) mg/dL Ur Leukocyte Esterase (Negative) Urine RBC (0-5) /hpf Urine WBC (0-5) /hpf Ur Squamous Epith Cells (0-4) /hpf Urine Bacteria (None) /hpf Hyaline Casts (0-2) /lpf Urine Mucus (None) /hpf - Radiology Data Radiology results: image reviewed (KUB shows some hepatomegaly. Chest x-ray shows no acute process) Disposition Clinical Impression: Hypokalemia, Pancreatitis Disposition: ADMITTED IP TO THIS HOSP Is patient prescribed a controlled substance at d/c from ED?: No Referrals: Francisco Barfield DO [Primary Care Provider] - 1-2 days Decision Time: 16:03
[2020-07-24 15:04] LABS: Anisocytosis Slight; Basophils # (A) 0.1 k/uL (0-0.2); Basophils % (A) 1 %; Eosinophils % (A) 0 %; HCT 39.4 % (34.0-46.0); HGB 12.9 gm/dL (11.4-16.0); Lymphocytes # (A) 2.7 k/uL (1.0-4.8); Lymphocytes % (A) 27 %; MCH 33.6 pg (25.0-35.0); MCHC 32.8 g/dL (31.0-37.0); MCV 102.4 fL (80.0-100.0); Macrocytosis Moderate; Mean Platelet Volume 6.9; Monocytes # (A) 0.3 k/uL (0-1.0); Monocytes % (A) 3 %; Neutrophils # (A) 6.9 k/uL (1.3-7.7); Neutrophils % (A) 68 %; Platelet Count 538 k/uL (150-450); Poikilocytosis Slight; RBC 3.85 m/uL (3.80-5.40); RDW 16.5 % (11.5-15.5); WBC 10.1 k/uL (3.8-10.6)
[2020-07-24 15:15] LABS: Albumin 3.2 g/dL (3.5-5.0); Calcium 10.1 mg/dL (8.4-10.2); INR 1.1 (<1.2); Partial Thromboplastin Time 27.4 sec (22.0-30.0); Potassium 2.9 mmol/L (3.5-5.1); Prothrombin Time 11.2 sec (9.0-12.0); Total Bilirubin 0.4 mg/dL (0.2-1.3)
[2020-07-24 15:17] LABS: Appearance,Urine Cloudy (Clear); Bacteria,Urine Many /hpf; Bilirubin,Urine Negative (Negative); Blood,Urine Negative (Negative); Color,Urine Yellow; Glucose,Urine (UA) Negative (Negative); Hyaline Casts,Urine 1 /lpf (0-2); Ketones,Urine Negative (Negative); Leukocyte Esterase,Urine Moderate (Negative); Mucus,Urine Rare /hpf; Nitrite,Urine Negative (Negative); Protein,Urine 1+ (Negative); RBC,Urine 2 /hpf (0-5); Specific Gravity,Urine 1.013 (1.001-1.035); Squamous Epithelial Cell,Urine 9 /hpf (0-4); Urobilinogen,Urine <2.0 mg/dL (<2.0); WBC,Urine 31 /hpf (0-5)
--- NOTE | 2020-07-24 15:27 | XR ---
EXAMINATION TYPE: XR chest 2V DATE OF EXAM: 07/24/2020 CLINICAL HISTORY: Abdominal pain TECHNIQUE: Frontal and lateral views of the chest are obtained. COMPARISON: None FINDINGS: The cardiomediastinal silhouette is within normal limits for size. Pulmonary vasculature i s normal. There is no focal air space opacity, pleural effusion, or pneumothorax seen. The osseous st ructures are intact. IMPRESSION: No acute cardiopulmonary process.
--- NOTE | 2020-07-24 15:29 | XR ---
EXAMINATION TYPE: XR KUB DATE OF EXAM: 07/24/2020 3:12 PM CLINICAL HISTORY: Abdominal pain TECHNIQUE: Upright images of the abdomen and pelvis were obtained COMPARISON: None. FINDINGS: Nonspecific bowel gas pattern. Hepatomegaly. No pneumoperitoneum or abnormal calcification appreciated. The lung bases are clear. The osseous structures are intact. IMPRESSION: 1. Nonspecific bowel gas pattern. 2. Hepatomegaly.
[2020-07-24] MEDS ORDERED: POTASSIUM CHLORIDE 20 MEQ in WATER FOR INJECTION 1 100ML.BAG IVPB STA (15:38)
[2020-07-24] MEDS ORDERED: ONDANSETRON 4 MG/2 ML VIAL IVP PRN (16:04)
[2020-07-24] MEDS ORDERED: NALOXONE 0.4 MG/ML 1 ML VIAL IV PRN (16:04)
[2020-07-24] MEDS: 0.9% NACL WITH KCL 20 MEQ/L 1,000 ML IV SCH (16:40)
[2020-07-24] MEDS ORDERED: LORazepam 2 MG/ML INJ IV STA (17:20)
[2020-07-24] MEDS ORDERED: NICOTINE 14MG/24HR PATCH TRANSDERM STA (17:20)
--- NOTE | 2020-07-24 17:52 | CT ---
EXAMINATION TYPE: CT abdomen pelvis w con DATE OF EXAM: 07/24/2020 COMPARISON: None HISTORY: Upper Abdominal pain. TECHNIQUE: Helical acquisition of images was performed from the lung bases through the pelvis. CT DLP: 1420.9 mGy-cm. Automated exposure control for dose reduction was used. CONTRAST: Performed without Oral Contrast and with IV Contrast, patient injected with 100 mL of Isovu e 370. FINDINGS: LUNG BASES: No acute findings, but there is evidence of left ventricular atrophy. LIVER/GB: No significant abnormality is appreciated. PANCREAS/ DUODENUM: There is mild peripancreatic edematous reticulation throughout the anterior parar enal space. This finding likely represents relatively mild pancreatitis. However, the differential di agnosis includes peptic ulcer disease in the correct clinical setting, as the inflammatory changes al so involve the mid/distal second portion of the duodenum. The pancreatic parenchyma enhances normally. There are no abnormal fluid or gas collections. The sple delmer vein is widely patent. SPLEEN: No significant abnormality is seen. ADRENALS: No significant abnormality is seen. KIDNEYS: No acute findings. However, the left kidney is atrophic, and approximately 25% of the volume of the right kidney. PERITONEAL CAVITY: No pneumoperitoneum and no peritoneal fluid. RETROPERITONEAL ADENOPATHY: None visualized REPRODUCTIVE ORGANS: No significant abnormality is seen URINARY BLADDER: No significant abnormality is seen. PELVIC ADENOPATHY: None visualized. OSSEOUS STRUCTURES: No significant abnormality is seen. BOWEL: No significant abnormality is seen. OTHER: No acute vascular findings. However, nonaneurysmal aortobiiliac atherosclerotic changes are no yoselyn, at least moderate in degree for the patient's age. IMPRESSION: FINDINGS MOST CONSISTENT WITH PANCREATITIS, WITH DIFFERENTIAL CONSIDERATION ABOVE. Incidental Findings: Left renal global atrophy, intraluminal thrombus within a nonaneurysmal abdomina l aorta, LVH.
[2020-07-24] MEDS ORDERED: ONDANSETRON 4 MG TAB PO PRN (18:54)
[2020-07-24 20:33] LABS: Glucose,Whole Blood 203 mg/dL (75-99)
[2020-07-24] MEDS ORDERED: NON FORMULARY DRUG (Omeprazole [Omeprazole] 20 MG Capsule.Dr) PO SCH (21:00)
[2020-07-24 22:35] LABS: Glucose,Whole Blood 206 mg/dL (75-99)
[2020-07-24] MEDS: INSULIN ASPART (NovoLOG) 100 UNIT/ML VIAL SQ SCH ×4 (22:39→23:12)
[2020-07-25] MEDS: traMADol 50 MG TAB PO PRN (03:13)
[2020-07-25] MEDS: 0.9% NACL WITH KCL 20 MEQ/L 1,000 ML IV SCH ×3 (03:27→21:53)
[2020-07-25 06:12] LABS: Urine Alcohol Negative (Negative); Urine Barbiturate Negative (Negative); Urine Cocaine Negative (Negative); Urine Methadone Negative (Negative); Urine Opiates Negative (Negative); Urine Phencyclidine Negative (Negative)
[2020-07-25 06:27] LABS: Glucose,Whole Blood 159 mg/dL (75-99)
[2020-07-25] MEDS: INSULIN ASPART (NovoLOG) 100 UNIT/ML VIAL SQ SCH ×4 (06:42→21:54)
[2020-07-25] MEDS: LEVOTHYROXINE 75 MCG TAB PO SCH (06:42)
[2020-07-25 06:51] LABS: Anisocytosis Slight; Basophils % (A) 0 %; Eosinophils % (A) 0 %; HCT 31.1 % (34.0-46.0); HGB 10.2 gm/dL (11.4-16.0); Lymphocytes # (A) 2.5 k/uL (1.0-4.8); Lymphocytes % (A) 37 %; MCH 32.8 pg (25.0-35.0); MCHC 32.9 g/dL (31.0-37.0); MCV 99.7 fL (80.0-100.0); Macrocytosis Slight; Mean Platelet Volume 6.5; Monocytes # (A) 0.3 k/uL (0-1.0); Monocytes % (A) 4 %; Neutrophils % (A) 58 %; Platelet Count 450 k/uL (150-450); Poikilocytosis Slight; RBC 3.12 m/uL (3.80-5.40); RDW 17.3 % (11.5-15.5); WBC 6.9 k/uL (3.8-10.6)
[2020-07-25 07:01] LABS: ALT 10 U/L (4-34); AST 21 U/L (14-36); African American GFR (CKD) >90 (>60 ml/min/1.73 sqM); Albumin 2.3 g/dL (3.5-5.0); Alkaline Phosphatase 113 U/L (38-126); Amylase 81 U/L (30-110); Anion Gap 5 mmol/L; Blood Urea Nitrogen 6 mg/dL (7-17); Calcium 8.7 mg/dL (8.4-10.2); Carbon Dioxide 16 mmol/L (22-30); Chloride 116 mmol/L (98-107); Glucose 147 mg/dL (74-99); Non-African American GFR(CKD) >90 (>60 ml/min/1.73 sqM); Sodium 137 mmol/L (137-145); Total Bilirubin 0.3 mg/dL (0.2-1.3); Total Protein 4.9 g/dL (6.3-8.2)
[2020-07-25 07:19] LABS: Potassium 2.5 mmol/L (3.5-5.1)
[2020-07-25] MEDS: buPROPion XL 300 MG TAB.ER.24H PO SCH (08:31)
[2020-07-25] MEDS: POTASSIUM CHLORIDE ER 20 MEQ TAB.ER PO SCH ×5 (08:32→17:30)
[2020-07-25] MEDS ORDERED: PANTOPRAZOLE 40 MG/10 ML VIAL IV SCH (09:00)
[2020-07-25] MEDS: DOXYCYCLINE 100 MG CAP PO SCH ×2 (10:57→21:53)
[2020-07-25 11:27] LABS: Cholesterol 101 mg/dL (<200); HDL Cholesterol 26 mg/dL (40-60); LDL Cholesterol,Calculated 29 mg/dL (0-99); Triglycerides 228 mg/dL (<150)
--- NOTE | 2020-07-25 11:57 | P.HPIM ---
History of Present Illness H&P Date: 07/25/20 Chief Complaint: Abnormal lab report HISTORY OF PRESENT ILLNESS This is a 39-year-old female patient of Dr. Barfield with past medical history of recurrent depression, diabetes mellitus type 2, hypothyroidism, tobacco use and dependence, regular marijuana use. Patient states that she was at Dr. Barfield's office 2 days ago and had routine blood work done. She received a call yesterday to come in the hospital due to abnormal potassium. Patient denies having any abdominal pain. She does complain of nausea, no vomiting. She denies any black stools. She states she has not been feeling well for the past 2 months with some shortness of breath, weight loss of 40 pounds. Regarding depression, patient states that she is only following with her PCP and follows with psychiatry as she missed [address] Barfield provides her with prescription for Wellbutrin.. Patient presented to [facility] for evaluation. Patient was afebrile, heart rate 107, blood pressure 83/56, pulse ox 99% on room air. WBC 10.1, hemoglobin 12.9, platelet count 538. Sodium 136, potassium 2.9, chloride 109, CO2 15, BUN 8 and creatinine 0.97 blood sugar 217. Troponin 0.037. Total bilirubin 0.4, AST 22, ALT 12, alkaline phosphatase 159. Lipase 1347. Urinalysis reveals leukoesterase moderate, bacteria many. Urine drug screen positive for cannabinoids. KUB reveals nonspecific bowel gas pattern. Hepatomegaly. Chest x-ray reveals no acute abnormality. CAT scan of the abdomen and pelvis with contrast reveals pancreatitis. Patient has been admitted to the [facility] floor and consult requested with GI. Patient also indicated suicidal ideation while in the emergency center and consult added for psychiatry. cementer machine is at the bedside. REVIEW OF SYSTEMS Constitutional: No fever, no chills, no night sweats. Reports weight change. Reports weakness, Reports fatigue Reports lethargy. No daytime sleepiness. EENT: No headache. No blurred vision or double vision, no loss of vision. No loss of Hearing, no ringing in the ears, no dizziness. No nasal drainage or co ngestion. No epistaxis. No sore throat. Lungs: Reports shortness of breath, cough, no sputum production. No wheezing. Cardiovascular: No chest pain, no lower extremity edema. No palpitations. No paroxysmal nocturnal dyspnea. No orthopnea. No lightheadedness or dizziness. No syncopal episodes. Abdominal: No abdominal pain. No nausea, vomiting. No diarrhea. No constipation. No bloody or tarry stools. Reports loss of appetite. Genitourinary: No dysuria, increased frequency, urgency. No urinary retention. Musculoskeletal: No myalgias. Reports muscle weakness, no gait dysfunction, no frequent falls. No back pain. No neck pain. Integumentary: No wounds, no lesions. No rash or pruritus. No unusual bruising. No change in hair or nails. Neurologic: No aphasia. No facial droop. No change in mentation. No head injury. No headache. No paralysis. No paresthesia. Psychiatric: No depression. No anxiety. At the time of evaluation, patient is denying any suicidal ideation and denies that she told staff that she was suicidal. Endocrine: No abnormal blood sugars. No weight change. No excessive sweating or thirst. No cold intolerance. SOCIAL HISTORY Patient is a smoker of 2 packs per days and she was 17 years of age. She smokes marijuana but has cut back for the past 2 months. She also takes edibles and last one was 2 days ago. She denies any alcohol abuse. She currently lives at home with her . She does not have oxygen or CPAP at home. FAMILY HISTORY Father in his 20s from suicide. Mother is alive with no major medical problems. Patient has 2 brothers with no major medical problems. She does not have any sisters. She has one daughter with no major medical problems. PHYSICAL EXAMINATION Gen: This is a 39-year-old disheveled appearing female. She is resti ng in bed and appears to be comfortable and in no acute distress. HEENT: Head is atraumatic, normocephalic. Pupils equal, round. Sclerae is anicteric. NECK: Supple. No JVD. No lymphadenopathy. No thyromegaly. LUNGS: Clear to auscultation. No wheezes or rhonchi. No intercostal retractions. HEART: Regular rate and rhythm. No murmur. ABDOMEN: Soft. Bowel sounds are present. No masses. No abdominal tenderness. EXTREMITIES: No pedal edema. No calf tenderness. NEUROLOGICAL: Patient is awake, alert and oriented x3. Cranial nerves 2 through 12 are grossly intact. ASSESSMENT AND PLAN 1. Hypokalemia. Patient will be replaced with 100 mEq of potassium today and repeat potassium this afternoon. 2. Acute pancreatitis. Consult with GI. Patient is on clear liquids only at this time. Ultrasound of the gallbladder, ELISEO and IgG subclasses ordered by GI. 3. Urinary tract infection. Patient has history of ESBL UTIs. Patient will be started on doxycycline 100 mg twice daily. 4. Suicidal ideation. Consult with psychiatry, continue health and safety manager. 5. Diabetes mellitus type II. Metformin 1000 mg with supper and Januvia on hold. Continue NovoLog scale before meals and at bedtime. 6. Recurrent depression. Continue Wellbutrin 300 mg daily. 7. Gastroesophageal reflux disease and GI prophylaxis. Continue Protonix. 8. Hypothyroidism. Continue levothyroxine 150 g daily. 9. Tobacco use and dependence. Continue nicotine patch. 10. DVT prophylaxis. Heparin subcu. 11. Regular marijuana use. Patient denies any other drug use. Patient will be admitted to the hospital for a minimum of 2 night stay. Discharge plan: Most likely return home. Impression and plan of care have been directed as dictated by the signing physician. Pamella Aparicio nurse practitioner acting as scribe for signing physician. Past Medical History Past Medical History: Diabetes Mellitus, GERD/Reflux, Thyroid Disorder Additional Past Medical History / Comment(s): kidney stones. History of Any Multi-Drug Resistant Organisms: ESBL Date of last positivie culture/infection: 09/25/19 ESBL E.coli MDRO Source:: Urine-ESBL Additional Past Surgical History / Comment(s): Cervical spine surgery, scoliosis repair, kidney stone surgeries, Right knee arthroscopy (cartilage removed), Csection Past Anesthesia/Blood Transfusion Reactions: No Reported Reaction Past Psychological History: Anxiety, Bipolar, Depression Smoking Status: Current every day smoker Past Alcohol Use History: None Reported Additional Past Alcohol Use History / Comment(s): Patient is a smoker of one and half packs per day for 20 years. She smokes marijuana at least 3 times a week for the past 2 years. She denies any alcohol abuse. She currently lives at home with her . Past Drug Use History: Marijuana - Past Family History Father Additional Family Medical History / Comment(s): Father in his 20s from suicide. Mother Additional Family Medical History / Comment(s): Mother is alive in her 50s with no major medical problems. Brother(s) Additional Family Medical History / Comment(s): Patient has 2 brothers with no major medical problems. Patient does not have any sisters. Patient has one daughter with no major medical problems. Medications and Allergies Home Medications Medication Instructions Recorded Confirmed Type Levothyroxine Sodium 150 mcg PO DAILY 09/18/19 07/24/20 History Omeprazole 20 mg PO BID 09/18/19 07/24/20 History medroxyPROGESTERone [Depo-Provera] 150 mg IM Q84D 09/18/19 07/24/20 History Dextroamphetamine/Amphetamine 30 mg PO BID 07/24/20 07/24/20 History [Adderall] Ondansetron [Zofran] 4 mg PO DIRECTED PRN 07/24/20 07/24/20 History buPROPion XL [Wellbutrin Xl] 300 mg PO DAILY 07/24/20 07/24/20 History metFORMIN HCL 1,000 mg PO W/SUPPER 07/24/20 07/24/20 History sitaGLIPtin PHOSPHATE [Januvia] 100 mg PO DIRECTED 07/24/20 07/24/20 History Allergies Allergy/AdvReac Type Severity Reaction Status Date / Time No Known Allergies Allergy Verified 07/24/20 16:14 Physical Exam Vitals: Vital Signs Temp Pulse Pulse Resp BP BP Pulse Ox 07/25/20 08:00 98.6 F 100 18 90/51 98 07/25/20 04:00 97.9 F 98 18 109/53 07/25/20 00:00 97.9 F 96 16 97/53 07/24/20 20:00 97.5 F L 99 18 109/59 07/24/20 16:59 16 07/24/20 16:29 103 H 16 108/74 100 07/24/20 13:52 98.4 F 107 H 18 83/56 99 Intake and Output 07/24/20 07/25/20 07/25/20 22:59 06:59 14:59 Intake Total 665 1500 Balance 665 1500 Intake: Oral 665 1500 Other: Weight 86.636 kg 86.8 kg Results CBC & Chem 7: 07/25/20 06:30 07/25/20 06:30 Labs: Abnormal Lab Results - Last 24 Hours (Table) 07/24/20 07/24/20 07/24/20 Range/Units 14:48 14:48 14:48 RBC (3.80-5.40) m/uL Hgb (11.4-16.0) gm/dL Hct (34.0-46.0) % MCV 102.4 H (80.0-100.0) fL RDW 16.5 H (11.5-15.5) % Plt Count 538 H (150-450) k/uL Sodium 136 L (137-145) mmol/L Potassium 2.9 L (3.5-5.1) mmol/L Chloride 109 H (98-107) mmol/L Carbon Dioxide 15 L (22-30) mmol/L BUN (7-17) mg/dL Glucose 217 H (74-99) mg/dL POC Glucose (mg/dL) (75-99) mg/dL Alkaline Phosphatase 159 H (38-126) U/L Troponin I (0.000-0.034) ng/mL Total Protein 6.0 L (6.3-8.2) g/dL Albumin 3.2 L (3.5-5.0) g/dL Lipase 1347 H (23-300) U/L Urine Appearance Cloudy H (Clear) Urine Protein 1+ H (Negative) Ur Leukocyte Esterase Moderate H (Negative) Urine WBC 31 H (0-5) /hpf Ur Squamous Epith Cells 9 H (0-4) /hpf Urine Bacteria Many H (None) /hpf Urine Mucus Rare H (None) /hpf U Cannabinoids Screen (Negative) ng/mL 07/24/20 07/24/20 07/24/20 Range/Units 14:48 14:48 17:22 RBC (3.80-5.40) m/uL Hgb (11.4-16.0) gm/dL Hct (34.0-46.0) % MCV (80.0-100.0) fL RDW (11.5-15.5) % Plt Count (150-450) k/uL Sodium (137-145) mmol/L Potassium (3.5-5.1) mmol/L Chloride (98-107) mmol/L Carbon Dioxide (22-30) mmol/L BUN (7-17) mg/dL Glucose (74-99) mg/dL POC Glucose (mg/dL) (75-99) mg/dL Alkaline Phosphatase (38-126) U/L Troponin I 0.038 H* 0.038 H* (0.000-0.034) ng/mL Total Protein (6.3-8.2) g/dL Albumin (3.5-5.0) g/dL Lipase (23-300) U/L Urine Appearance (Clear) Urine Protein (Negative) Ur Leukocyte Esterase (Negative) Urine WBC (0-5) /hpf Ur Squamous Epith Cells (0-4) /hpf Urine Bacteria (None) /hpf Urine Mucus (None) /hpf U Cannabinoids Screen Positive H (Negative) ng/mL 07/24/20 07/24/20 07/24/20 Range/Units 20:32 21:11 22:30 RBC (3.80-5.40) m/uL Hgb (11.4-16.0) gm/dL Hct (34.0-46.0) % MCV (80.0-100.0) fL RDW (11.5-15.5) % Plt Count (150-450) k/uL Sodium (137-145) mmol/L Potassium (3.5-5.1) mmol/L Chloride (98-107) mmol/L Carbon Dioxide (22-30) mmol/L BUN (7-17) mg/dL Glucose (74-99) mg/dL POC Glucose (mg/dL) 203 H 206 H (75-99) mg/dL Alkaline Phosphatase (38-126) U/L Troponin I 0.037 H* (0.000-0.034) ng/mL Total Protein (6.3-8.2) g/dL Albumin (3.5-5.0) g/dL Lipase (23-300) U/L Urine Appearance (Clear) Urine Protein (Negative) Ur Leukocyte Esterase (Negative) Urine WBC (0-5) /hpf Ur Squamous Epith Cells (0-4) /hpf Urine Bacteria (None) /hpf Urine Mucus (None) /hpf U Cannabinoids Screen (Negative) ng/mL 07/25/20 07/25/20 07/25/20 Range/Units 06:25 06:30 06:30 RBC 3.12 L (3.80-5.40) m/uL Hgb 10.2 L (11.4-16.0) gm/dL Hct 31.1 L (34.0-46.0) % MCV (80.0-100.0) fL RDW 17.3 H (11.5-15.5) % Plt Count (150-450) k/uL Sodium (137-145) mmol/L Potassium 2.5 L* (3.5-5.1) mmol/L Chloride 116 H (98-107) mmol/L Carbon Dioxide 16 L (22-30) mmol/L BUN 6 L (7-17) mg/dL Glucose 147 H (74-99) mg/dL POC Glucose (mg/dL) 159 H (75-99) mg/dL Alkaline Phosphatase (38-126) U/L Troponin I (0.000-0.034) ng/mL Total Protein 4.9 L (6.3-8.2) g/dL Albumin 2.3 L (3.5-5.0) g/dL Lipase 1090 H (23-300) U/L Urine Appearance (Clear) Urine Protein (Negative) Ur Leukocyte Esterase (Negative) Urine WBC (0-5) /hpf Ur Squamous Epith Cells (0-4) /hpf Urine Bacteria (None) /hpf Urine Mucus (None) /hpf U Cannabinoids Screen (Negative) ng/mL Microbiology - Last 24 Hours (Table) 07/24/20 14:48 Urine Culture - Preliminary Urine,Voided Thrombosis Risk Factor Assmnt - Choose All That Apply Any of the Below Risk Factors Present?: No
[2020-07-25 11:58] LABS: Glucose,Whole Blood 195 mg/dL (75-99)
[2020-07-25] MEDS ORDERED: OLANZapine 5 MG TAB PO ONE (13:21)
[2020-07-25] MEDS: NICOTINE 21MG/24HR PATCH TRANSDERM SCH (13:38)
--- NOTE | 2020-07-25 15:45 | US ---
EXAMINATION TYPE: US gallbladder DATE OF EXAM: 07/25/2020 COMPARISON: CT dated 07/24/2020, renal US dated 09/24/2019 CLINICAL HISTORY: pancreatitis. nausea EXAM MEASUREMENTS: Liver Length: 19.2 cm Gallbladder Wall: 0.2 cm CBD: 0.6 cm Right Kidney: 12.4 x 6.3 x 5.3 cm Pancreas: mildly heterogeneous mid, and tail partially obscurer by overlying bowel gas Liver: enlarged and attenuated posteriorly suggests fatty liver Gallbladder: wnl Evidence for sonographic Terrazas's sign: no CBD: size is at upper limits of normal Right Kidney: No hydronephrosis or masses seen IMPRESSION: Findings consistent with patient's history of pancreatitis. There is limited evaluation o f the pancreas. Of note on patient's CT scan there is some low dense foci within the wall of the thir d portion of the duodenum possibly related to local inflammatory change. Hepatic steatosis, hepatomeg mary. Additional findings above.
[2020-07-25 15:53] VITALS: BMI 29.0
[2020-07-25 17:06] LABS: Glucose,Whole Blood 241 mg/dL (75-99)
[2020-07-25] MEDS: metFORMIN 500 MG TAB PO SCH (17:29)
[2020-07-25] MEDS: OLANZapine 5 MG TAB PO SCH ×2 (17:31→21:53)
[2020-07-25 20:13] LABS: Glucose,Whole Blood 176 mg/dL (75-99)
[2020-07-25] MEDS: PANTOPRAZOLE 40 MG/10 ML VIAL IV SCH (21:53)
[2020-07-25] MEDS: HEPARIN SODIUM,PORCINE 5,000 UNIT/ML 1 ML VIAL SQ SCH (21:53)
[2020-07-26 06:31] LABS: Glucose,Whole Blood 154 mg/dL (75-99)
[2020-07-26] MEDS: INSULIN ASPART (NovoLOG) 100 UNIT/ML VIAL SQ SCH ×4 (06:52→21:16)
[2020-07-26] MEDS: LEVOTHYROXINE 75 MCG TAB PO SCH (06:52)
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
[2020-07-26 07:39] LABS: Anisocytosis Slight; HCT 32.9 % (34.0-46.0); HGB 10.8 gm/dL (11.4-16.0); Hypochromasia Moderate; MCH 34.2 pg (25.0-35.0); MCHC 32.8 g/dL (31.0-37.0); MCV 104.2 fL (80.0-100.0); Macrocytosis Moderate; Mean Platelet Volume 6.7; Platelet Count 439 k/uL (150-450); Poikilocytosis Slight; RBC 3.16 m/uL (3.80-5.40); RDW 16.7 % (11.5-15.5); WBC 5.4 k/uL (3.8-10.6)
[2020-07-26 07:51] LABS: ALT 14 U/L (4-34); AST 30 U/L (14-36); African American GFR (CKD) >90 (>60 ml/min/1.73 sqM); Albumin 2.4 g/dL (3.5-5.0); Alkaline Phosphatase 119 U/L (38-126); Anion Gap 6 mmol/L; Blood Urea Nitrogen 5 mg/dL (7-17); Carbon Dioxide 15 mmol/L (22-30); Chloride 121 mmol/L (98-107); Glucose 137 mg/dL (74-99); Non-African American GFR(CKD) 90 (>60 ml/min/1.73 sqM); Potassium 3.8 mmol/L (3.5-5.1); Sodium 142 mmol/L (137-145); Total Bilirubin 0.3 mg/dL (0.2-1.3)
[2020-07-26] MEDS: HEPARIN SODIUM,PORCINE 5,000 UNIT/ML 1 ML VIAL SQ SCH ×2 (09:01→21:16)
[2020-07-26] MEDS: PANTOPRAZOLE 40 MG/10 ML VIAL IV SCH (09:01)
[2020-07-26] MEDS: 0.9% NACL WITH KCL 20 MEQ/L 1,000 ML IV SCH ×2 (09:02→17:35)
[2020-07-26] MEDS: NICOTINE 21MG/24HR PATCH TRANSDERM SCH (09:02)
[2020-07-26] MEDS: buPROPion XL 300 MG TAB.ER.24H PO SCH (09:02)
[2020-07-26] MEDS: OLANZapine 5 MG TAB PO SCH ×3 (09:03→21:16)
[2020-07-26] MEDS: DOXYCYCLINE 100 MG CAP PO SCH ×2 (09:03→21:16)
[2020-07-26 09:14] LABS: IgG Subclass 3 19.9 mg/dL (11.0-85.0)
--- NOTE | 2020-07-26 09:53 | P.CONS ---
History of Present Illness - Reason for Consult Consult date: 07/25/20 pancreatitis Requesting physician: Antonio Lugo - Chief Complaint Abnormal labs - History of Present Illness 3-year-old female with a past medical history significant for tobacco abuse, marijuana use, depression, diabetes mellitus and hypothyroidism who presented to the hospital for evaluation of abnormal laboratory evaluation in the outpatient setting. Patient does have a known history of acid reflux and is on omeprazole therapy. She reports decreased appetite and approximately 40-50 pound weight loss over the past year. The patient reports nausea but is denying any abdominal pain. The patient does use ibuprofen regularly as well as Tylenol for chronic neck pain. The patient was found to have elevated lipase at 1090 on presentation with computed tomography scan of the abdomen showing peripancreatic edema suggestive of mild pancreatitis. She denies any prior history of pancreatitis. She denies any excessive alcohol use. She denies any familial history of pancreatic disease. She is on numerous medications for treatment of her chronic medical conditions. Other laboratory evaluation on presentation significant for WBC 6.9, hemoglobin 10.2, platelet count 450,000, total bilirubin 0.3, alkaline phosphatase 113, AST 21 and ALT 10. Review of Systems REVIEW OF SYSTEMS: CONSTITUTIONAL: Denies any fevers, chills, she does report 4050 pound weight loss. CARDIOVASCULAR: Denies any chest pain, palpitations high or low blood pressures RESPIRATORY: Denies any shortness of breath, hemoptysis or cough. GENITOURINARY: No dysuria or hematuria. MUSCULOSKELETAL: No weakness reported. SKIN: Denies any new rashes or lesions, jaundice or pallor. PSYCHIATRIC: patient has a history of depression. NEUROLOGY: Denies headache, denies any new focal deficits. EARS/NOSE/THROAT: No recent hearing change, congestion, nasal discharge or sore throat. EYES: No pain in eyes, discharge or change in vision. GASTROINTESTINAL: As per HPI. Past Medical History Past Medical History: Diabetes Mellitus, GERD/Reflux, Thyroid Disorder Additional Past Medical History / Comment(s): kidney stones. History of Any Multi-Drug Resistant Organisms: ESBL Year Discovered:: 09/25/19 ESBL E.coli MDRO Source:: Urine-ESBL Additional Past Surgical History / Comment(s): Cervical spine surgery, scoliosis repair, kidney stone surgeries, Right knee arthroscopy (cartilage removed), Csection Past Anesthesia/Blood Transfusion Reactions: No Reported Reaction Past Psychological History: Anxiety, Bipolar, Depression Smoking Status: Current every day smoker Past Alcohol Use History: None Reported Additional Past Alcohol Use History / Comment(s): Patient is a smoker of one and half packs per day for 20 years. She smokes marijuana at least 3 times a week for the past 2 years. She denies any alcohol abuse. She currently lives at home with her . Past Drug Use History: Marijuana - Past Family History Father Additional Family Medical History / Comment(s): Father in his 20s from suicide. Mother Additional Family Medical History / Comment(s): Mother is alive in her 50s with no major medical problems. Brother(s) Additional Family Medical History / Comment(s): Patient has 2 brothers with no major medical problems. Patient does not have any sisters. Patient has one jaclyn ghter with no major medical problems. Medications and Allergies Home Medications Medication Instructions Recorded Confirmed Type Levothyroxine Sodium 150 mcg PO DAILY 09/18/19 07/24/20 History Omeprazole 20 mg PO BID 09/18/19 07/24/20 History medroxyPROGESTERone [Depo-Provera] 150 mg IM Q84D 09/18/19 07/24/20 History Dextroamphetamine/Amphetamine 30 mg PO BID 07/24/20 07/24/20 History [Adderall] Ondansetron [Zofran] 4 mg PO DIRECTED PRN 07/24/20 07/24/20 History buPROPion XL [Wellbutrin Xl] 300 mg PO DAILY 07/24/20 07/24/20 History metFORMIN HCL 1,000 mg PO W/SUPPER 07/24/20 07/24/20 History sitaGLIPtin PHOSPHATE [Januvia] 100 mg PO DIRECTED 07/24/20 07/24/20 History Allergies Allergy/AdvReac Type Severity Reaction Status Date / Time No Known Allergies Allergy Verified 07/24/20 16:14 Physical Exam Vitals: Vital Signs Temp Pulse Pulse Resp BP BP Pulse Ox 07/25/20 10:59 97.6 F 97 16 98/55 98 07/25/20 08:00 98.6 F 100 18 90/51 98 07/25/20 04:00 97.9 F 98 18 109/53 07/25/20 00:00 97.9 F 96 16 97/53 07/24/20 20:00 97.5 F L 99 18 109/59 07/24/20 16:59 16 07/24/20 16:29 103 H 16 108/74 100 Intake and Output 07/24/20 07/25/20 07/25/20 22:59 06:59 14:59 Intake Total 665 1500 640 Balance 665 1500 640 Intake: Oral 665 1500 640 Other: # Voids 1 Weight 86.636 kg 86.8 kg On physical examination, patient appears comfortable in no apparent distress. HEAD: Normocephalic, atraumatic. EYES: No scleral icterus. No conjunctival injection. MOUTH: No lesions, tongue midline. NECK: Trachea midline, no gross abnormalities. CHEST: Clear to auscultation with no wheezing or rhonchi appreciated. HEART: Regular rate and rhythm. ABDOMEN: Soft, obeseand nontender to palpation. Bowel sounds are positive. No organomegaly. No guarding or rigidity. EXTREMITIES: No pedal edema. SKIN: No rashes, no jaundice. NEUROLOGIC: Alert and oriented x3. No focal deficits. Results CBC & Chem 7: 07/26/20 07:00 07/26/20 07:00 Labs: Abnormal Lab Results - Last 24 Hours (Table) 07/24/20 07/24/20 07/24/20 Range/Units 14:48 14:48 14:48 RBC (3.80-5.40) m/uL Hgb (11.4-16.0) gm/dL Hct (34.0-46.0) % MCV 102.4 H (80.0-100.0) fL RDW 16.5 H (11.5-15.5) % Plt Count 538 H (150-450) k/uL Sodium 136 L (137-145) mmol/L Potassium 2.9 L (3.5-5.1) mmol/L Chloride 109 H (98-107) mmol/L Carbon Dioxide 15 L (22-30) mmol/L BUN (7-17) mg/dL Glucose 217 H (74-99) mg/dL POC Glucose (mg/dL) (75-99) mg/dL Alkaline Phosphatase 159 H (38-126) U/L Troponin I (0.000-0.034) ng/mL Total Protein 6.0 L (6.3-8.2) g/dL Albumin 3.2 L (3.5-5.0) g/dL Triglycerides (<150) mg/dL HDL Cholesterol (40-60) mg/dL Lipase 1347 H (23-300) U/L Urine Appearance Cloudy H (Clear) Urine Protein 1+ H (Negative) Ur Leukocyte Esterase Moderate H (Negative) Urine WBC 31 H (0-5) /hpf Ur Squamous Epith Cells 9 H (0-4) /hpf Urine Bacteria Many H (None) /hpf Urine Mucus Rare H (None) /hpf U Cannabinoids Screen (Negative) ng/mL 07/24/20 07/24/20 07/24/20 Range/Units 14:48 14:48 17:22 RBC (3.80-5.40) m/uL Hgb (11.4-16.0) gm/dL Hct (34.0-46.0) % MCV (80.0-100.0) fL RDW (11.5-15.5) % Plt Count (150-450) k/uL Sodium (137-145) mmol/L Potassium (3.5-5.1) mmol/L Chloride (98-107) mmol/L Carbon Dioxide (22-30) mmol/L BUN (7-17) mg/dL Glucose (74-99) mg/dL POC Glucose (mg/dL) (75-99) mg/dL Alkaline Phosphatase (38-126) U/L Troponin I 0.038 H* 0.038 H* (0.000-0.034) ng/mL Total Protein (6.3-8.2) g/dL Albumin (3.5-5.0) g/dL Triglycerides (<150) mg/dL HDL Cholesterol (40-60) mg/dL Lipase (23-300) U/L Urine Appearance (Clear) Urine Protein (Negative) Ur Leukocyte Esterase (Negative) Urine WBC (0-5) /hpf Ur Squamous Epith Cells (0-4) /hpf Urine Bacteria (None) /hpf Urine Mucus (None) /hpf U Cannabinoids Screen Positive H (Negative) ng/mL 07/24/20 07/24/20 07/24/20 Range/Units 20:32 21:11 22:30 RBC (3.80-5.40) m/uL Hgb (11.4-16.0) gm/dL Hct (34.0-46.0) % MCV (80.0-100.0) fL RDW (11.5-15.5) % Plt Count (150-450) k/uL Sodium (137-145) mmol/L Potassium (3.5-5.1) mmol/L Chloride (98-107) mmol/L Carbon Dioxide (22-30) mmol/L BUN (7-17) mg/dL Glucose (74-99) mg/dL POC Glucose (mg/dL) 203 H 206 H (75-99) mg/dL Alkaline Phosphatase (38-126) U/L Troponin I 0.037 H* (0.000-0.034) ng/mL Total Protein (6.3-8.2) g/dL Albumin (3.5-5.0) g/dL Triglycerides (<150) mg/dL HDL Cholesterol (40-60) mg/dL Lipase (23-300) U/L Urine Appearance (Clear) Urine Protein (Negative) Ur Leukocyte Esterase (Negative) Urine WBC (0-5) /hpf Ur Squamous Epith Cells (0-4) /hpf Urine Bacteria (None) /hpf Urine Mucus (None) /hpf U Cannabinoids Screen (Negative) ng/mL 07/25/20 07/25/20 07/25/20 Range/Units 06:25 06:30 06:30 RBC 3.12 L (3.80-5.40) m/uL Hgb 10.2 L (11.4-16.0) gm/dL Hct 31.1 L (34.0-46.0) % MCV (80.0-100.0) fL RDW 17.3 H (11.5-15.5) % Plt Count (150-450) k/uL Sodium (137-145) mmol/L Potassium 2.5 L* (3.5-5.1) mmol/L Chloride 116 H (98-107) mmol/L Carbon Dioxide 16 L (22-30) mmol/L BUN 6 L (7-17) mg/dL Glucose 147 H (74-99) mg/dL POC Glucose (mg/dL) 159 H (75-99) mg/dL Alkaline Phosphatase (38-126) U/L Troponin I (0.000-0.034) ng/mL Total Protein 4.9 L (6.3-8.2) g/dL Albumin 2.3 L (3.5-5.0) g/dL Triglycerides (<150) mg/dL HDL Cholesterol (40-60) mg/dL Lipase 1090 H (23-300) U/L Urine Appearance (Clear) Urine Protein (Negative) Ur Leukocyte Esterase (Negative) Urine WBC (0-5) /hpf Ur Squamous Epith Cells (0-4) /hpf Urine Bacteria (None) /hpf Urine Mucus (None) /hpf U Cannabinoids Screen (Negative) ng/mL 07/25/20 07/25/20 Range/Units 06:30 11:51 RBC (3.80-5.40) m/uL Hgb (11.4-16.0) gm/dL Hct (34.0-46.0) % MCV (80.0-100.0) fL RDW (11.5-15.5) % Plt Count (150-450) k/uL Sodium (137-145) mmol/L Potassium (3.5-5.1) mmol/L Chloride (98-107) mmol/L Carbon Dioxide (22-30) mmol/L BUN (7-17) mg/dL Glucose (74-99) mg/dL POC Glucose (mg/dL) 195 H (75-99) mg/dL Alkaline Phosphatase (38-126) U/L Troponin I (0.000-0.034) ng/mL Total Protein (6.3-8.2) g/dL Albumin (3.5-5.0) g/dL Triglycerides 228 H (<150) mg/dL HDL Cholesterol 26 L (40-60) mg/dL Lipase (23-300) U/L Urine Appearance (Clear) Urine Protein (Negative) Ur Leukocyte Esterase (Negative) Urine WBC (0-5) /hpf Ur Squamous Epith Cells (0-4) /hpf Urine Bacteria (None) /hpf Urine Mucus (None) /hpf U Cannabinoids Screen (Negative) ng/mL Microbiology - Last 24 Hours (Table) 07/24/20 14:48 Urine Culture - Preliminary Urine,Voided CT scan - abdomen: report reviewed (computed tomography scan of the abdomen findings of mild peripancreatic inflammation suggestive of mild pancreatitis) Assessment and Plan (1) Pancreatitis Narrative/Plan: 39-year-old female with multiple medical comorbidities presenting to the hospital for evaluation of abnormal labs on follow-up with primary care physician in the outpatient setting. Patient found to have elevated lipase of 1090 on presentation with computed tomography scan suggestive of mild pancreatitis. Denies any excessive alcohol use, abdominal pain, history of pancreatic disease. She is on numerous medications for treatment of chronic medical conditions. She does report nausea. She reports daily use of Tylenol and ibuprofen for neck pain. She reports 40-50 pounds of unintentional weight loss with associated decreased appetite. Unclear etiology of pancreatitis, may be medication related, autoimmune workup ordered as well as ultrasound to rule out hepatobiliary pathology such as choledocholithiasis or symptomatic gallstones/gallstone pancreatitis, or other etiology. Current Visit: Yes Status: Acute Code(s): K85.90 - ACUTE PANCREATITIS WITHOUT NECROSIS OR INFECTION, UNSP SNOMED Code(s): 27190573 (2) Unintentional weight loss Current Visit: Yes Status: Acute Code(s): R63.4 - ABNORMAL WEIGHT LOSS SNOMED Code(s): 653019491 Plan: supportive care Patient tolerating liquid diet and asking if for diet to be advanced, will be changed to low fat ELISEO and IgG4 ordered Ultrasound of the abdomen ordered for evaluation of hepatobiliary system Triglycerides ordered continue IV fluid hydration and pain control Patient insists that she is feeling well in terms of her abdomen like discharge, discussed unintentional weight loss the patient would likely benefit from further evaluation with EGD and colonoscopy in the outpatient setting after discharge Thank you for allowing us to participate in the care of the patient
[2020-07-26 11:35] LABS: Glucose,Whole Blood 271 mg/dL (75-99)
[2020-07-26] MEDS: SODIUM BICARBONATE TAB 650 MG TAB PO SCH ×3 (12:52→21:17)
--- NOTE | 2020-07-26 13:47 | P.PN ---
Subjective Progress Note Date: 07/26/20 Principal diagnosis: pancreatitis patient is seen lying in bed today denying any abdominal pain. She did tolerate advancement in her diet yesterday. No nausea, vomiting or change in bowels reported. Objective - Vital Signs Vital signs: Vital Signs Temp 98.2 F 07/26/20 04:00 Pulse 105 H 07/26/20 04:00 Resp 16 07/26/20 04:00 BP 96/60 07/26/20 04:00 Pulse Ox 100 07/26/20 04:00 Intake & Output 07/25/20 07/26/20 07/26/20 18:59 06:59 18:59 Intake Total 1000 600 480 Balance 1000 600 480 Weight 86.8 kg 88.5 kg Intake: Oral 1000 600 480 Other: # Voids 1 - Exam On physical examination, patient appears comfortable in no apparent distress. HEAD: Normocephalic, atraumatic. EYES: No scleral icterus. No conjunctival injection. MOUTH: No lesions, tongue midline. NECK: Trachea midline, no gross abnormalities. ABDOMEN: Soft, obese. Bowel sounds are positive. No organomegaly. No guarding or rigidity. EXTREMITIES: No pedal edema. SKIN: No rashes, no jaundice. NEUROLOGIC: Alert and oriented x3. No focal deficits. - Labs CBC & Chem 7: 07/26/20 07:00 07/26/20 07:00 Labs: Abnormal Lab Results - Last 24 Hours (Table) 07/25/20 07/25/20 07/25/20 Range/Units 06:30 11:51 15:02 RBC (3.80-5.40) m/uL Hgb (11.4-16.0) gm/dL Hct (34.0-46.0) % MCV (80.0-100.0) fL RDW (11.5-15.5) % Potassium 3.1 L (3.5-5.1) mmol/L Chloride (98-107) mmol/L Carbon Dioxide (22-30) mmol/L BUN (7-17) mg/dL Glucose (74-99) mg/dL POC Glucose (mg/dL) 195 H (75-99) mg/dL Total Protein (6.3-8.2) g/dL Albumin (3.5-5.0) g/dL Triglycerides 228 H (<150) mg/dL HDL Cholesterol 26 L (40-60) mg/dL Lipase (23-300) U/L 07/25/20 07/25/20 07/26/20 Range/Units 16:56 20:07 06:29 RBC (3.80-5.40) m/uL Hgb (11.4-16.0) gm/dL Hct (34.0-46.0) % MCV (80.0-100.0) fL RDW (11.5-15.5) % Potassium (3.5-5.1) mmol/L Chloride (98-107) mmol/L Carbon Dioxide (22-30) mmol/L BUN (7-17) mg/dL Glucose (74-99) mg/dL POC Glucose (mg/dL) 241 H 176 H 154 H (75-99) mg/dL Total Protein (6.3-8.2) g/dL Albumin (3.5-5.0) g/dL Triglycerides (<150) mg/dL HDL Cholesterol (40-60) mg/dL Lipase (23-300) U/L 07/26/20 07/26/20 Range/Units 07:00 07:00 RBC 3.16 L (3.80-5.40) m/uL Hgb 10.8 L (11.4-16.0) gm/dL Hct 32.9 L (34.0-46.0) % MCV 104.2 H (80.0-100.0) fL RDW 16.7 H (11.5-15.5) % Potassium (3.5-5.1) mmol/L Chloride 121 H (98-107) mmol/L Carbon Dioxide 15 L (22-30) mmol/L BUN 5 L (7-17) mg/dL Glucose 137 H (74-99) mg/dL POC Glucose (mg/dL) (75-99) mg/dL Total Protein 5.0 L (6.3-8.2) g/dL Albumin 2.4 L (3.5-5.0) g/dL Triglycerides (<150) mg/dL HDL Cholesterol (40-60) mg/dL Lipase 1143 H (23-300) U/L Microbiology - Last 24 Hours (Table) 07/24/20 14:48 Urine Culture - Preliminary Urine,Voided Gram Neg Bacilli Assessment and Plan (1) Pancreatitis Narrative/Plan: 39-year-old female with multiple medical comorbidities presenting to the hospital for evaluation of abnormal labs on follow-up with primary care physician in the outpatient setting. Patient found to have elevated lipase of 1090 on presentation with computed tomography scan suggestive of mild pancre atitis. Denies any excessive alcohol use, abdominal pain, history of pancreatic disease. She is on numerous medications for treatment of chronic medical conditions. She does report nausea. She reports daily use of Tylenol and ibuprofen for neck pain. She reports 40-50 pounds of unintentional weight loss with associated decreased appetite. Unclear etiology of pancreatitis, may be medication related, autoimmune workup ordered as well as ultrasound to rule out hepatobiliary pathology such as choledocholithiasis or symptomatic gallstones/gallstone pancreatitis, or other etiology. patient is seen lying in bed tolerating diet with no reports of abdominal pain.autoimmune workup negative. Current Visit: Yes Status: Acute Code(s): K85.90 - ACUTE PANCREATITIS WITHOUT NECROSIS OR INFECTION, UNSP SNOMED Code(s): 05035449 (2) Unintentional weight loss Current Visit: Yes Status: Acute Code(s): R63.4 - ABNORMAL WEIGHT LOSS SNOMED Code(s): 351939453 Plan: supportive care Patient tolerating low-fat diet ELISEO and IgG4 do not suggest autoimmune pancreatitis Ultrasound of the abdomen with findings of pancreatitis with no evidence of cho lecystitis, cholelithiasis or choledocholithiasis Triglycerides only mildly elevated continue IV fluid hydration and pain control Patient insists that she is feeling well in terms of her abdomen like discharge, discussed unintentional weight loss the patient would likely benefit from further evaluation with EGD and colonoscopy in the outpatient setting after discharge Thank you for allowing us to participate in the care of the patient, the GI service will stand by, please call us back with any questions or concerns
--- NOTE | 2020-07-26 13:48 | P.PN ---
Subjective Progress Note Date: 07/26/20 This is a 39-year-old female patient of Dr. Barfield with past medical history of recurrent depression, diabetes mellitus type 2, hypothyroidism, tobacco use and dependence, regular marijuana use. Patient states that she was at Dr. Barfield's office 2 days ago and had routine blood work done. She received a call yesterday to come in the hospital due to abnormal potassium. Patient denies having any abdominal pain. She does complain of nausea, no vomiting. She denies any black stools. She states she has not been feeling well for the past 2 months with some shortness of breath, weight loss of 40 pounds. Regarding depression, patient states that she is only following with her PCP and follows with psychiatry as she missed [address] Barfield provides her with prescription for Wellbutrin.. Patient presented to [facility] emergency center for evaluat ion. Patient was afebrile, heart rate 107, blood pressure 83/56, pulse ox 99% on room air. WBC 10.1, hemoglobin 12.9, platelet count 538. Sodium 136, potassium 2.9, chloride 109, CO2 15, BUN 8 and creatinine 0.97 blood sugar 217. Troponin 0.037. Total bilirubin 0.4, AST 22, ALT 12, alkaline phosphatase 159. Lipase 1347. Urinalysis reveals leukoesterase moderate, bacteria many. Urine drug screen positive for cannabinoids. KUB reveals nonspecific bowel gas pattern. Hepatomegaly. Chest x-ray reveals no acute abnormality. CAT scan of the abdomen and pelvis with contrast reveals pancreatitis. Patient has been admitted to the Medr floor and consult requested with GI. Patient also indicated suicidal ideation while in the emergency center and consult added for psychiatry. 07/26: Patient was seen this morning resting in bed, requiring about going home. Denies any abdominal pain, nausea or vomiting. Ultrasound of gallbladder showed findings consistent with history of pancreatitis, and hepatomegaly Vital signs are stable, she remains afebrile, pulse rate 109, blood pressure 92/53, pulse ox on percent on room air. White blood cells 5.4, hemoglobin 10.8, lipase remains elevated at 1143. Will continue with low-fat diet, hydration and repeat lipase in a.m. Sodium bicarb added 650 mg by mouth 3 times a day for 5 days. She was evaluated by psychiatry and Zyprexa was added suicide precautions were discontinued. REVIEW OF SYSTEMS Constitutional: No fever, no chills, no night sweats. Reports weight change. Reports weakness, Reports fatigue Reports lethargy. No daytime sleepiness. EENT: No headache. No blurred vision or double vision, no loss of vision. No loss of Hearing, no ringing in the ears, no dizziness. No nasal drainage or congestion. No epistaxis. No sore throat. Lungs: Reports shortness of breath, cough, no sputum production. No wheezing. Cardiovascular: No chest pain, no lower extremity edema. No palpitations. No paroxysmal nocturnal dyspnea. No orthopnea. No lightheadedness or dizziness. No syncopal episodes. Abdominal: No abdominal pain. No nausea, vomiting. No diarrhea. No constipation. No bloody or tarry stools. Reports loss of appetite. Genitourinary: No dysuria, increased frequency, urgency. No urinary retention. Musculoskeletal: No myalgias. Reports muscle weakness, no gait dysfunction, no frequent falls. No back pain. No neck pain. Integumentary: No wounds, no lesions. No rash or pruritus. No unusual bruising. No change in hair or nails. Neurologic: No aphasia. No facial droop. No change in mentation. No head injury. No headache. No paralysis. No paresthesia. Psychiatric: No depression. No anxiety. At the time of evaluation, patient is denying any suicidal ideation and denies that she told staff that she was suicidal. Endocrine: No abnormal blood sugars. No weight change. No excessive sweating or thirst. No cold intolerance. PHYSICAL EXAMINATION Gen: This is a 39-year-old disheveled appearing female. She is resting in bed and appears to be comfortable and in no acute distress. HEENT: Head is atraumatic, normocephalic. Pupils equal, round. Sclerae is anicteric. NECK: Supple. No JVD. No lymphadenopathy. No thyromegaly. LUNGS: Clear to auscultation. No wheezes or rhonchi. No intercostal retractions. HEART: Regular rate and rhythm. S1, S2. No murmur. ABDOMEN: Soft. Bowel sounds are present. No masses. No abdominal tenderness. EXTREMITIES: No pedal edema. No calf tenderness. NEUROLOGICAL: Patient is awake, alert and oriented x3. Cranial nerves 2 through 12 are grossly intact. ASSESSMENT AND PLAN 1. Hypokalemia. Replaced per protocol, potassium 3.8 today. 2. Acute pancreatitis. Consult with GI. Diet advance to low-fat per GI. Ultrasound of the gallbladder was okay, ELISEO and IgG subclasses ordered by GI. 3. Urinary tract infection. Patient has history of ESBL UTIs. Patient will be started on doxycycline 100 mg twice daily. 4. Suicidal ideation. Zyprexa per psychiatry and suicide precautions were discontinued, follow-up with Dr. Aguilar as outpatient. 5. Diabetes mellitus type II. Metformin 1000 mg with supper and Januvia on hold. Continue NovoLog scale before meals and at bedtime. We will likely need to be changed to Jardiance on discharge 6. Recurrent depression. Continue Wellbutrin 300 mg daily. 7. Gastroesophageal reflux disease and GI prophylaxis. Continue Protonix. 8. Hypothyroidism. Continue levothyroxine 150 g daily. 9. Tobacco use and dependence. Continue nicotine patch. 10. DVT prophylaxis. Heparin subcu. 11. Regular marijuana use. Patient denies any other drug use. Patient will be admitted to the hospital for a minimum of 2 night stay. Discharge plan: Most likely return home. Impression and plan of care have been directed as dictated by the signing physician. Kaye uLis nurse practitioner acting as scribe for signing physician. Objective - Vital Signs Vital signs: Vital Signs Temp 97.8 F 07/26/20 08:00 Pulse 98 07/26/20 12:00 Resp 16 07/26/20 04:00 BP 108/58 07/26/20 12:00 Pulse Ox 99 07/26/20 12:00 Intake & Output 07/25/20 07/26/20 07/26/20 18:59 06:59 18:59 Intake Total 1000 600 480 Balance 1000 600 480 Weight 86.8 kg 88.5 kg Intake: Oral 1000 600 480 Other: # Voids 1 - Labs CBC & Chem 7: 07/26/20 07:00 07/26/20 07:00 Labs: Abnormal Lab Results - Last 24 Hours (Table) 07/25/20 07/25/20 07/25/20 Range/Units 15:02 16:56 20:07 RBC (3.80-5.40) m/uL Hgb (11.4-16.0) gm/dL Hct (34.0-46.0) % MCV (80.0-100.0) fL RDW (11.5-15.5) % Potassium 3.1 L (3.5-5.1) mmol/L Chloride (98-107) mmol/L Carbon Dioxide (22-30) mmol/L BUN (7-17) mg/dL Glucose (74-99) mg/dL POC Glucose (mg/dL) 241 H 176 H (75-99) mg/dL Total Protein (6.3-8.2) g/dL Albumin (3.5-5.0) g/dL Lipase (23-300) U/L 07/26/20 07/26/20 07/26/20 Range/Units 06:29 07:00 07:00 RBC 3.16 L (3.80-5.40) m/uL Hgb 10.8 L (11.4-16.0) gm/dL Hct 32.9 L (34.0-46.0) % MCV 104.2 H (80.0-100.0) fL RDW 16.7 H (11.5-15.5) % Potassium (3.5-5.1) mmol/L Chloride 121 H (98-107) mmol/L Carbon Dioxide 15 L (22-30) mmol/L BUN 5 L (7-17) mg/dL Glucose 137 H (74-99) mg/dL POC Glucose (mg/dL) 154 H (75-99) mg/dL Total Protein 5.0 L (6.3-8.2) g/dL Albumin 2.4 L (3.5-5.0) g/dL Lipase 1143 H (23-300) U/L 07/26/20 Range/Units 11:34 RBC (3.80-5.40) m/uL Hgb (11.4-16.0) gm/dL Hct (34.0-46.0) % MCV (80.0-100.0) fL RDW (11.5-15.5) % Potassium (3.5-5.1) mmol/L Chloride (98-107) mmol/L Carbon Dioxide (22-30) mmol/L BUN (7-17) mg/dL Glucose (74-99) mg/dL POC Glucose (mg/dL) 271 H (75-99) mg/dL Total Protein (6.3-8.2) g/dL Albumin (3.5-5.0) g/dL Lipase (23-300) U/L Microbiology - Last 24 Hours (Table) 07/24/20 14:48 Urine Culture - Preliminary Urine,Voided Gram Neg Bacilli
[2020-07-26 17:14] LABS: Glucose,Whole Blood 208 mg/dL (75-99)
[2020-07-26] MEDS: metFORMIN 500 MG TAB PO SCH (17:35)
[2020-07-26 20:12] LABS: Glucose,Whole Blood 209 mg/dL (75-99)
[2020-07-26] MEDS: traMADol 50 MG TAB PO PRN (23:17)
[2020-07-27] MEDS: 0.9% NACL WITH KCL 20 MEQ/L 1,000 ML IV SCH (04:14)
[2020-07-27 05:34] VITALS: RESP 18
[2020-07-27 06:31] LABS: Glucose,Whole Blood 171 mg/dL (75-99)
[2020-07-27] MEDS: INSULIN ASPART (NovoLOG) 100 UNIT/ML VIAL SQ SCH ×2 (06:38→13:13)
[2020-07-27] MEDS: LEVOTHYROXINE 75 MCG TAB PO SCH (06:38)
[2020-07-27] MEDS ORDERED: PANTOPRAZOLE 40 MG TABLET PO SCH (07:30)
[2020-07-27 07:47] VITALS: BP 119/64; TEMP 97.9
[2020-07-27] MEDS: HEPARIN SODIUM,PORCINE 5,000 UNIT/ML 1 ML VIAL SQ SCH (08:09)
[2020-07-27] MEDS: SODIUM BICARBONATE TAB 650 MG TAB PO SCH (08:10)
[2020-07-27] MEDS: NICOTINE 21MG/24HR PATCH TRANSDERM SCH (08:10)
[2020-07-27 08:11] LABS: Anisocytosis Slight; HCT 30.5 % (34.0-46.0); Hypochromasia Slight; MCH 34.3 pg (25.0-35.0); MCHC 32.7 g/dL (31.0-37.0); MCV 104.8 fL (80.0-100.0); Macrocytosis Moderate; Mean Platelet Volume 6.9; Platelet Count 392 k/uL (150-450); Poikilocytosis Slight; RBC 2.91 m/uL (3.80-5.40); RDW 16.8 % (11.5-15.5); WBC 5.7 k/uL (3.8-10.6)
[2020-07-27] MEDS: DOXYCYCLINE 100 MG CAP PO SCH (08:11)
[2020-07-27] MEDS: OLANZapine 5 MG TAB PO SCH (08:11)
[2020-07-27] MEDS: buPROPion XL 300 MG TAB.ER.24H PO SCH (08:11)
[2020-07-27 08:22] LABS: ALT 15 U/L (4-34); AST 26 U/L (14-36); African American GFR (CKD) >90 (>60 ml/min/1.73 sqM); Albumin 2.4 g/dL (3.5-5.0); Alkaline Phosphatase 105 U/L (38-126); Anion Gap 7 mmol/L; Blood Urea Nitrogen 9 mg/dL (7-17); Calcium 8.9 mg/dL (8.4-10.2); Carbon Dioxide 14 mmol/L (22-30); Chloride 119 mmol/L (98-107); Glucose 145 mg/dL (74-99); Non-African American GFR(CKD) >90 (>60 ml/min/1.73 sqM); Sodium 140 mmol/L (137-145); Total Bilirubin 0.3 mg/dL (0.2-1.3)
--- NOTE | 2020-07-27 11:03 | P.DS ---
Providers Date of admission: 07/24/20 16:04 Expected date of discharge: 07/27/20 Attending physician: Antonio Lugo Consults: 07/25/20 09:01 Consult Physician Routine Consulting Provider: Jack Thao Consult Reason/Comments: Suicidal thoughts Do you want consulting provider notified?: Yes Primary care physician: Francisco Barfield [facility] Course: This is a 39-year-old female patient of Dr. Barfield with past medical history of recurrent depression, diabetes mellitus type 2, hypothyroidism, tobacco use and dependence, regular marijuana use. Patient states that she was at Dr. Barfield's office 2 days ago and had routine blood work done. She received a call yesterday to come in the hospital due to abnormal potassium. Patient denies having any abdominal pain. She does complain of nausea, no vomiting. She denies any black stools. She states she has not been feeling well for the past 2 months with some shortness of breath, weight loss of 40 pounds. Regarding depression, patient states that she is only following with her PCP and follows with psychiatry as she missed [address] Barfield provides her with prescription for Wellbutrin.. Patient presented to [facility] emergency center for evaluation. Patient was afebrile, heart rate 107, blood pressure 83/56, pulse ox 99% on room air. WBC 10.1, hemoglobin 12.9, platelet count 538. Sodium 136, potassium 2.9, chloride 109, CO2 15, BUN 8 and creatinine 0.97 blood sugar 217. Troponin 0.037. Total bilirubin 0.4, AST 22, ALT 12, alkaline phosphatase 159. Lipase 1347. Urinalysis reveals leukoesterase moderate, bacteria many. Urine drug screen positive for cannabinoids. KUB reveals nonspecific bowel gas pattern. Hepatomegaly. Chest x-ray reveals no acute abnormality. CAT scan of the abdomen and pelvis with contrast reveals pancreatitis. Patient has been admitted to the [facility] floor and consult requested with GI. Patient also indicated suicidal ideation while in the emergency center and consult added for psychiatry. 07/26: Patient was seen this morning resting in bed, requiring about going home. Denies any abdominal pain, nausea or vomiting. Ultrasound of gallbladder showed findings consistent with history of pancreatitis, and hepatomegaly Vital signs are stable, she remains afebrile, pulse rate 109, blood pressure 92/53, pulse ox on percent on room air. White blood cells 5.4, hemoglobin 10.8, lipase remains elevated at 1143. Will continue with low-fat diet, hydration and repeat lipase in a.m. Sodium bicarb added 650 mg by mouth 3 times a day for 5 days. She was evaluated by psychiatry and Zyprexa was added suicide precautions were discontinued. 07/27: Patient seen and examined resting in bed, reports she is ready to go home. Vital signs are stable, she remains afebrile, heart rate 99, blood pressure 119/63, pulse ox 96% on room air. She is tolerating low-fat diet, denies any abdominal pain, nausea or vomiting. Lipase 1296 this morning, we'll follow this as outpatient. Patient reported she never started Januvia, we'll continue metformin on discharge. Patient's to follow-up with Dr. Aguilar for psychiatry. Discharge diagnosis 1. Hypokalemia. 2. Acute pancreatitis. 3. Urinary tract infection. 4. Suicidal ideation. 5. Diabetes mellitus type II. 6. Recurrent depression. 7. Gastroesophageal reflux disease 8. Hypothyroidism. 9. Tobacco use and dependence. 10. Regular marijuana use. Discharge plan: Home with self-care Impression and plan of care have been directed as dictated by the signing physician. Kaye Luis nurse practitioner acting as scribe for signing physician. Patient Condition at Discharge: Good Plan - Discharge Summary Discharge Rx Participant: No New Discharge Prescriptions: New Nicotine 21Mg/24Hr Patch [Habitrol] 1 patch TRANSDERM DAILY patch Pantoprazole [Protonix] 40 mg PO [facility] #30 tablet. OLANZapine [ZyPREXA] 5 mg PO TID #90 tab Continue medroxyPROGESTERone [Depo-Provera] 150 mg IM Q84D Levothyroxine Sodium 150 mcg PO DAILY Omeprazole 20 mg PO BID Dextroamphetamine/Amphetamine [Adderall] 30 mg PO BID metFORMIN HCL 1,000 mg PO W/SUPPER Ondansetron [Zofran] 4 mg PO DIRECTED PRN PRN Reason: Nausea buPROPion XL [Wellbutrin XL] 300 mg PO DAILY Discontinued sitaGLIPtin PHOSPHATE [Januvia] 100 mg PO DIRECTED Discharge Medication List Levothyroxine Sodium 150 mcg PO DAILY 09/18/19 [History] Omeprazole 20 mg PO BID 09/18/19 [History] medroxyPROGESTERone [Depo-Provera] 150 mg IM Q84D 09/18/19 [History] Dextroamphetamine/Amphetamine [Adderall] 30 mg PO BID 07/24/20 [History] Ondansetron [Zofran] 4 mg PO DIRECTED PRN 07/24/20 [History] buPROPion XL [Wellbutrin XL] 300 mg PO DAILY 07/24/20 [History] metFORMIN HCL 1,000 mg PO W/SUPPER 07/24/20 [History] Nicotine 21Mg/24Hr Patch [Habitrol] 1 patch TRANSDERM DAILY patch 07/27/20 [Rx] OLANZapine [ZyPREXA] 5 mg PO TID #90 tab 07/27/20 [Rx] Pantoprazole [Protonix] 40 mg PO [id number]-[id number] #30 tablet. 07/27/20 [Rx] Follow up Appointment(s)/Referral(s): Francisco Barfield DO [Primary Care Provider] - 1-2 days Ozzie Torres MD [STAFF PHYSICIAN] - 1 Week Discharge Disposition: HOME SELF-CARE
[2020-07-27 12:28] VITALS: PULSE 94
[2020-07-27 12:28] LABS: Glucose,Whole Blood 223 mg/dL (75-99)
== END 2020-07-27 13:23 | disposition home or self-care (01) | DRG 439 ==
LOC: EC 13:16 → 3SCARD 16:04
PROVIDERS: ADMIT Internal Medicine Geriatric Medicine; ATTEND Internal Medicine Geriatric Medicine
DX: K85.90 Acute pancreatitis without necrosis or infection, unspecified (principal); N39.0 Urinary tract infection, site not specified; R45.851 Suicidal ideations; F33.9 Major depressive disorder, recurrent, unspecified; F41.0 Panic disorder [episodic paroxysmal anxiety]; K21.9 Gastro-esophageal reflux disease without esophagitis; F17.200 Nicotine dependence, unspecified, uncomplicated; E03.9 Hypothyroidism, unspecified; G89.29 Other chronic pain; E11.9 Type 2 diabetes mellitus without complications; F41.9 Anxiety disorder, unspecified; E87.6 Hypokalemia; M41.9 Scoliosis, unspecified; R53.82 Chronic fatigue, unspecified; R63.4 Abnormal weight loss; Z79.4 Long term (current) use of insulin; Z79.890 Hormone replacement therapy; Z79.899 Other long term (current) drug therapy; Z87.442 Personal history of urinary calculi; Z86.19 Personal history of other infectious and parasitic diseases; Z98.891 History of uterine scar from previous surgery; Z81.8 Family history of other mental and behavioral disorders; Z68.29 Body mass index [BMI] 29.0-29.9, adult
CPT/HCPCS: 36415; 71046; 74018; 74177; 76705; 80053; 80061; 80306; 81001; 82150; 82550; 82787; 83690; 83735; 84132; 84484; 85025; 85027; 85610; 85730; 86038; 87077; 87086; 87186; 93005; 96361; 96365; 96375; 99285

== ENCOUNTER → 2020-08-19 | Outpatient (CLI) | payer OTHER ==
--- NOTE | 2020-08-19 16:13 | US ---
EXAMINATION TYPE: US venous doppler duplex LE BI DATE OF EXAM: 08/19/2020 2:45 PM COMPARISON: NONE CLINICAL HISTORY: 39-year-old female R79.1 Elevated D-Dimer. SIDE PERFORMED: Bilateral TECHNIQUE: The lower extremity deep venous system is examined utilizing real time linear array sonog christina with graded compression, doppler sonography and color-flow sonography. FINDINGS: VESSELS IMAGED: External Iliac Vein (EIV) Common Femoral Vein Deep Femoral Vein Greater Saphenous Vein * Femoral Vein Popliteal Vein Small Saphenous Vein * Proximal Calf Veins (* superficial vessels) Right Leg: Negative for DVT Left Leg: Negative for DVT IMPRESSION: No evidence for DVT within the bilateral lower extremities imaged from the groin to the upper calves.
== END | disposition home or self-care (01) ==
LOC: RADUSWWP 14:18
PROVIDERS: ATTEND Family Medicine
DX: R79.1 Abnormal coagulation profile (principal)
CPT/HCPCS: 93970